=== PATIENT | female | born 1940 | race Caucasian/White ===

== ENCOUNTER 2019-08-17 09:46 | Observation (INO) | payer MEDICARE, SELFPAY ==
[2019-08-14 14:29] VITALS: BMI 32.5
[2019-08-17] VITALS (16 sets, daily range): BP systolic 120–171; BP diastolic 48–82; PULSE 6–78; RESP 16–20; TEMP 36.2–36.8; O2SAT 92–100
[2019-08-17] MEDS: sodium chloride 0.9% 1,000 ML 30 ML IV (06:34)
--- NOTE | 2019-08-17 06:53 | ANES.PREANE2 ---
Pre-Anesthetic Assessment Pre-Anesthetic Assessment: Height/Weight: Height 1.71 m Weight 95.708 kg Temp Pulse Resp BP Pulse Ox 97.2 F L 74 18 171/77 96 08/17/19 06:41 08/17/19 06:41 08/17/19 06:41 08/17/19 06:41 08/17/19 06:41 Preop Diagnosis: Lumbar spinal stenosis Proposed Procedure: Operation Date: 08/17/19 07:10 Proposed Procedures p Left, possible bilateral, L4-5 laminotomy/foraminotomy/possible discectomy/possible laminectomy M48.061/33959(Left) - Trent Etienne MD Was Beta Aaron taken within 24 hours: N/A Last intake: Intake Last Liquid Date 08/16/19 Last Liquid Time 22:00 Last Solid Date 08/16/19 Last Solid Time 15:00 Social: Social History: No alcohol and No tobacco Airway: Submandibular: WNL Cervical ROM: WNL MP: 3 Dentition: False (top and bottom plates ) History/ROS: No significant history except as noted and No significant complaints Pulmonary: Pulmonary: None reported CV/HEM: CV/HEM: HTN Comments: stress test neg 2014. denies CP/SOB : : None reported Hepatic: Hepatic: None reported GI: GI: None reported Metabolic: Metabolic: None reported Musc/skel: Musc/skel: None reported Neuropsych: Neuropsych: None reported Anesthetic Plan: ASA status: 3 Anesthesia: General Meds/Allergies Current Medications: Current Medications Generic Name Dose Route Start Last Admin Trade Name Freq PRN Reason Stop Dose Admin Sodium Chloride 1,000 mls @ 30 ml s/hr 08/17/19 06:15 08/17/19 06:34 Sodium Chloride 0.9% IV 08/18/19 06:14 30 mls/hr .Q24H DAMON Administration PFSH Anesthesia PFSH: Medical History (Updated 07/08/19 @ 15:15 by Trent Etienne MD) Displacement of lumbar disc with radiculopathy Stenosis, spinal, lumbar Surgical History (Updated 07/08/19 @ 15:15 by Trent Etienne MD) History of lumbar fusion Social History (Updated 07/08/19 @ 15:14 by Jessie Colón LPN) Smoking and tobacco status: former smoker Alcohol intake: never Lives independently: Yes Marital status: / Current occupational status: retired History of recent travel: No Data Anesthesia Cardiac Studies: No Data to Display
--- NOTE | 2019-08-17 06:58 | W.PM.OPSUD ---
Surgery/Procedure H&P Update DATE OF PROCEDURE: August 17, 2019 DATE H&P PERFORMED: 08/12/19 H&P UPDATE INFORMATION: I have reviewed H&P completed within last 30 days and H&P to be scanned into chart PREOP DIAGNOSIS: Lumbar spinal stenosis PRIMARY INDICATION FOR PROCEDURE: pain PLANNED PROCEDURE: Operation Date: 08/17/19 07:10 Proposed Procedures Left, possible bilateral, L4-5 laminotomy/foraminotomy/possible discectomy/possible laminectomy M48.061/31551(Left) - Trent Etienne MD
--- NOTE | 2019-08-17 07:06 | XR_ITS ---
WS: [id number] INTRAOPERATIVE LATERAL LUMBAR SPINE HISTORY: surgery COMPARISON: 01/19/2019 Lateral radiograph obtained in the OR with a metallic marker indicating the posterior L4-5 disc level . XR/XR lumbar spine 1V port [id number] IMPRESSION: Intraoperative planning marker at L4-5, posterior.
--- NOTE | 2019-08-17 07:08 | P.OP_ITS ---
Brief Operative Note: Date of procedure: 08/17/19 Pre-op diagnosis: Lumbar spinal stenosis Post-op diagnosis: same Procedure Done: Left L4-L5 laminotomy/foraminotomy Surgeon: Trent Etienne Estimated blood loss (mL): 20 Complications: None Post-op Plan: PACU, then fairchild Condition: stable Disposition: PACU Coding Level of Care Code Acute Rice Milling Supervisor for Kuldeep Baez
[2019-08-17] MEDS: thrombin 5,000 unit SDV 5000 UNIT XX (07:49)
--- NOTE | 2019-08-17 07:51 | XR_ITS ---
WS: [id number] INTRAOPERATIVE LATERAL LUMBAR SPINE HISTORY: SURGERY COMPARISON: 01/19/2019 Lateral radiograph obtained in the OR with a metallic marker indicating the posterior superior L5. So ft tissue spacers are present. Moderate vascular calcifications within the aorta. XR/XR lumbar spine 1V port [id number] IMPRESSION: Intraoperative planning marker at posterior superior L5 level.
--- NOTE | 2019-08-17 08:25 | SUR.OPER ---
Family Notified Of Patient's Status Via Phone.
--- NOTE | 2019-08-17 09:13 | SUR.PHASEI ---
PT AWAKES TO VOICE SLEEPY WITH GOOD RESP NOTED PT ON RA TRIAL, VSS
--- NOTE | 2019-08-17 09:24 | SUR.PHASEI ---
PT SATS ON RA DOWN TO 90% PT PLACED ON 3LNC SATS QUICKLY UP TO 94% PT AWAKES TO VOICE MOVES ALL EXT TO COMMAND, PT ROLLS TO SIDE DRSSING TO BACK D/I PT TAKING ICE CHIPS
--- NOTE | 2019-08-17 09:35 | SUR.PHASEI ---
0934 PT AWAKE ALERT REPORT CALLED PT OUT OF PHASE ON WAITING FOR ADM TO CHANGE IN COMPUTER.
[2019-08-17] MEDS: amlodipine 5 mg Tablet PO (10:55)
[2019-08-17] MEDS: docusate sodium 100 mg Capsule PO (10:55)
[2019-08-17] MEDS: isosorbide mononitrate ER 30 mg Tablet PO (10:55)
[2019-08-17] MEDS: gabapentin 300 mg Capsule PO (10:55)
[2019-08-17] MEDS: lactated ringers 1,000 ML 90 ML IV (10:56)
[2019-08-17] MEDS: HYDROcodone-acetaminophen 5-325 mg Tablet PO (11:37)
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
== END 2019-08-17 15:12 | disposition home or self-care (01) ==
LOC: MEDSURG 09:52
PROVIDERS: Admitting Provider Specialist; Family Provider Family Medicine; PCP Family Medicine; Visit Provider Specialist
PROC: (CPT 63030; principal; 2019-08-17 07:00)
DX: M48.061 Spinal stenosis, lumbar region without neurogenic claudication (principal); Z98.1 Arthrodesis status
CPT/HCPCS: 63030; 12345; 72020; 97110; 97161; G0378; J0131; J0690; J2001; J2405; J2704; J2710; J3010; J3490; J7030

== ENCOUNTER 2019-10-21 06:00 | Outpatient (RCR) | payer MEDICARE, SELFPAY | END 2019-11-06 23:59 | disposition home or self-care (01) | LOC: SPT 06:00 | PROVIDERS: PCP Family Medicine; Referring Provider Specialist; Visit Provider Specialist | DX: M51.16 Intervertebral disc disorders with radiculopathy, lumbar region (principal); M48.061 Spinal stenosis, lumbar region without neurogenic claudication | CPT/HCPCS: 97161 ==

== ENCOUNTER 2019-11-07 06:00 | Outpatient (RCR) | payer MEDICARE, SELFPAY | END 2019-12-07 23:59 | disposition home or self-care (01) | LOC: SPT 06:00 | PROVIDERS: PCP Family Medicine; Referring Provider Specialist; Visit Provider Specialist | DX: M51.16 Intervertebral disc disorders with radiculopathy, lumbar region (principal) | CPT/HCPCS: 97113 ==

== ENCOUNTER 2019-12-01 13:37 | Outpatient (CLI) | payer MEDICARE, SELFPAY ==
--- NOTE | 2019-12-01 14:15 | USCV_ITS ---
Kylie Kumar Age: 79 Gender: F : 1940 Exam Date: 12/01/2019 14:20 Ordering Phys: Tameka Shaikh Technologist: Betina Raymundo [place] [facility] [place]ication: lower extremity edema BP: / HR: 80 Rhythm: Sinus Technical Quality: Adequate MEASUREMENTS (Male / Female) Normal Values 2D ECHO LV Diastolic Diameter PLAX 4.4 cm 4.2 - 5.9 / 3.9 - 5.3 cm LV Systolic Diameter PLAX 2.0 cm IVS Diastolic Thickness 1.3 cm 0.6 - 1.0 / 0.6 - 0.9 cm IVS Systolic Thickness 1.9 cm LVPW Diastolic Thickness 0.7 cm 0.6 - 1.0 / 0.6 - 0.9 cm LVPW Systolic Thickness 1.6 cm LVOT Diameter 2.1 cm LV Ejection Fraction 2D Teich 84.7 % LV Ejection Fraction MOD 2C 82.5 % LV Ejection Fraction 2C AL 82.5 % LA Diameter 3.3 cm LA Width 1.9 cm LA Height 6.0 cm RA Width 2.8 cm RA Height 4.4 cm M-MODE LV Diastolic Diameter MM 4.4 cm 4.2 - 5.9 / 3.9 - 5.3 cm LV Systolic Diameter MM 2.6 cm LV Ejection Fraction MM Teich 72.9 % IVS Diastolic Thickness MM 1.3 cm 0.6 - 1.0 / 0.6 - 0.9 cm IVS Systolic Thickness MM 1.4 cm LVPW Diastolic Thickness MM 1.0 cm 0.6 - 1.0 / 0.6 - 0.9 cm LVPW Systolic Thickness MM 1.6 cm Aortic Annulus Diameter 2.8 cm LA Ao Ratio MM 1.2 MV E Point Septal Separation 0.3 cm DOPPLER AV Peak Velocity 329.0 cm/s LVOT Peak Velocity 144.0 cm/s AV Area Cont Eq vti 1.8 cm squared AV Area Cont Eq pk 1.5 cm squared MV Peak Velocity 153.0 cm/s MV Area PHT 2.8 cm squared Mitral E to A Ratio 0.9 MV E' Velocity 7.0 cm/s Mitral E to MV E' Ratio 9.7 Mitral E to LV E' Lateral Ratio 13.7 Mitral E to LV E' Septal Ratio 7.6 TR Peak Velocity 345.0 cm/s TR Peak Gradient 47.7 mmHg Right Atrial Pressure 3.0 mmHg Pulmonary Artery Systolic Pressu 50.6 mmHg PV Peak Velocity 144.0 cm/s RV Acceleration Time 0.1 s FINDINGS Left Ventricle Normal left ventricular size, systolic function and wall thickness, with no regional wall motion abnormalities. LVEF is 55 to 60%. Normal left ventricular wall thickness. Diastolic dysfunction is noted. Right Ventricle The right ventricle is normal in size and function. Right Atrium The right atrium is normal in size. Left Atrium The left atrium is normal in size. Mitral Valve Structurally normal mitral valve without significant stenosis or prolapse. There is trace mitral regurgitation. Aortic Valve Aortic sclerosis is noted. There is no aortic regurgitation. There is moderate aortic stenosis. Mean aortic valve gradient is 20 mmHg with an area of 1.7 cm squared. Tricuspid Valve Structurally normal tricuspid valve without significant stenosis. There is mild tricuspid regurgitation. RVSP is 50 to 55%. At least moderate pulmonary hypertension is noted. Pulmonic Valve Structurally normal pulmonic valve without significant stenosis. There is no pulmonic regurgitation. Pericardium Normal pericardium without effusion. Aorta Normal ascending aorta dimension. CONCLUSIONS LV systolic function is normal with EF of 55 to 60%. Diastolic dysfunction is noted. Moderate aortic stenosis with mean aortic valve gradient of 20 mmHg with an area of 1.7 cm squared. Moderate pulmonary hypertension. Reese Carter MD (Electronically Signed) Final Date: 01 December 2019 18:34 S
== END 2019-12-01 13:38 | disposition home or self-care (01) ==
PROVIDERS: PCP Family Medicine; Visit Provider Nurse Practitioner Family
DX: R60.0 Localized edema (principal); I51.81 Takotsubo syndrome; I35.0 Nonrheumatic aortic (valve) stenosis; I27.20 Pulmonary hypertension, unspecified
CPT/HCPCS: 93306

== ENCOUNTER 2019-12-08 06:00 | Outpatient (RCR) | payer MEDICARE, SELFPAY | END 2020-01-06 23:59 | disposition home or self-care (01) | LOC: SPT 06:00 | PROVIDERS: PCP Family Medicine; Referring Provider Specialist; Visit Provider Specialist | DX: M51.16 Intervertebral disc disorders with radiculopathy, lumbar region (principal) | CPT/HCPCS: 97113; 97530 ==

== ENCOUNTER 2020-02-01 13:40 | Outpatient (CLI) | payer MEDICARE, SELFPAY ==
--- NOTE | 2020-02-01 13:47 | MM_ITS ---
WS: [id number] BILATERAL SCREENING DIGITAL MAMMOGRAM WITH CAD HISTORY: SCREENING COMPARISON: None available. Bilateral CC and MLO views submitted. Computer aided detection analyzed. Breast composition: There are scattered areas of fibroglandular density. No suspicious masses, microc alcifications or architectural distortion. Benign calcifications in each breast. MM/[place] [id number] IMPRESSION: BI-RADS: 2-Benign FOLLOW UP: 1 Year Follow-up
== END 2020-02-01 13:41 | disposition home or self-care (01) ==
LOC: RADSHAW 13:45
PROVIDERS: PCP Family Medicine; Visit Provider Family Medicine
DX: Z12.31 Encounter for screening mammogram for malignant neoplasm of breast (principal)
CPT/HCPCS: 77067

== ENCOUNTER 2020-07-26 11:16 | Emergency (ER) | payer MEDICARE, SELFPAY ==
[2020-07-26 11:28] VITALS: BP 145/75; PULSE 74; RESP 17; TEMP 36.6; O2SAT 98; BMI 34.1
--- NOTE | 2020-07-26 11:38 | USCV_ITS ---
Kylie Kumar Age: 80 Gender: F : 1940 Exam Date: 07/26/2020 12:54 Ordering Phys: Jay Mancilla DO Technologist: Maggie Chaidez Exam Location: [facility]_ Indication: H/O RLE STENT 2004, RLE PAIN Risk Factors: Previous Vascular Surgery: RLE STENTS 2003 RIGHT LEFT BP: 150.0 / BP: 134.0/ 0 0 Waveform Velocity (cm/s) Velocity (cm/s) Waveform Triphasic 119.1 Iliac Prox Triphasic 129.6 Iliac Mid Triphasic 129.3 Iliac Distal Triphasic 107.7 [facility] Triphasic 101.7 SFA Prox Biphasic 88.9 SFA Mid Biphasic 132.8 SFA Dist Biphasic 46.1 POP Biphasic 76.0 QUALITY CHECKER Biphasic 55.0 DPA 0.8 LESLEY FINDINGS RT QUALITY CHECKER-125 RT DPA-120 To moderate diffuse dense plaques in the iliac and femoral arteries on the right side Slightly diminished resting LESLEY of 0.8 on the right side CONCLUSIONS Abnormal resting LESLEY on the right side, consistent with a mild peripheral artery disease. Mild to moderate diffuse plaques in the iliac and femoral arteries on the right side No prior study for comparison. Dr Jt Araujo MD [facility] (Electronically Signed) Final Date: 27 July 2020 19:35 S
--- NOTE | 2020-07-26 11:40 | ECG_ITS ---
[facility] Test Date: 2020-07-26 Pat Name: Kylie Kumar Department: Room: Gender: Female Elevator Repairer: : 1940 Requested By: Jay Mancilla Order Number: [id number] Reading MD: LETICIA ROBLES Measurements Intervals [place] Rate: 75 P: 51 UT: 155 QRS: 19 QRSD: 95 T: 68 QT: 398 QTc: 446 Interpretive Statements SINUS RHYTHM No previous ECG available for comparison Electronically Signed On 07-26-2020 23:40:27 CDT by LETICIA ROBLES [email or web address]
--- NOTE | 2020-07-26 11:41 | ED_ITS ---
HPI - General Adult General: Chief complaint: General Medical Stated complaint: GROIN PAIN/HAS STENT Time Seen by Provider: 07/26/20 11:33 History of Present Illness: HPI narrative: 80-year-old female presents with right groin pain. Patient reports that she has a couple stents in her right groin that over the last 4 days she has had pain in that area. She is concerned that there might be a blockage. She denies any increase activity, injury or radiation of the pain patient also states that she has palpitations which she describes as normal she can feel her heartbeat. Patient not having chest pain per se no shortness of breath or other systemic complaints. Associated symptoms: Deny chest pain, dyspnea, headache(s), nausea, rash or vomiting Review of Systems Const: Denies: fever(s) or chills Eyes: Denies: change in vision ENMT: Denies: throat pain Card: Reports: palpitations (please see hpi ); Denies: chest pain Resp: Denies: dyspnea or productive cough GI: Denies: abdominal pain, nausea or vomiting : Denies: flank pain Musc: Reports: other (Right groin pain) Skin/Breast: Denies: rash Neuro: Denies: headache(s) Psych: Denies: anxiety or depression PFSH ED PFSH: Medical History Aortic stenosis Displacement of lumbar disc with radiculopathy Hyperlipidemia LDL goal <130 Hypertension Stenosis, spinal, lumbar Surgical History History of lumbar fusion Social History Smoking and tobacco status: former smoker Alcohol intake: never Lives independently: Yes Marital status: / Current occupational status: retired History of recent travel: No Physical Exam Const: COMMON NORMALS: no acute distress, patient oriented x3, no limitations and healthy appearing Lymph: LYMPHATIC: no lymphadenopathy noted Resp: COMMON NORMALS: normal respiratory effort and clear to auscultation bilaterally EFFORT & INSPECTION: Yes able to speak in complete sentences AUSCULTATION: clear to auscultation bilaterally Cardio: COMMON NORMALS: regular rate, regular rhythm and Peripheral pulses 2+ throughout RATE: regular rate RHYTHM: regular rhythm PERIPHERAL PULSES: Peripheral pulses 2+ throughout Extremity: COMMON NORMALS: normal to inspection and full ROM NARRATIVE EXTREMITY EXAM: Tenderness to the right groin Neuro: COMMON NORMALS: patient oriented x3 and no focal motor deficits Psych: COMMON NORMALS: mental status grossly normal Skin: COMMON NORMALS: no rashes or lesions noted GENERAL SKIN EXAM: no rashes or lesions noted Course Vital Signs: Vital signs: Vital Signs Temperature 97.8 F 07/26/20 11:28 Pulse Rate 78 07/26/20 11:44 Respiratory Rate 18 07/26/20 11:44 Blood Pressure 154/47 07/26/20 11:44 Pulse Oximetry 98 07/26/20 11:44 MDM - General Adult MDM Narrative: Medical decision making narrative: Patient with negative ultrasound with good flow in all vessels in the right groin. Patient's pain is in the groin and not up into the abdomen. Much more consistent with groin strain. We will start her on anti-inflammatory and muscle relaxant. She should follow with her primary care provider at the end of this week or early next week for recheck of symptoms. EKG Data^: EKG 1: Attestation: I personally reviewed and interpreted this EKG as follows: EKG interpretation date: 07/26/20 EKG interpretation time: 11:27 Interpretation: Normal Sinus, Hr 75, pr 155, normal ecg Discharge Plan Discharge Prescriptions: No Action montelukast [Singulair] 10 mg tablet 10 mg PO DAILY@23 RF: 0 Complete Multivitamin Tablet 1 tab PO DAILY RF: 0 fenofibrate 160 mg tablet 160 mg PO DAILY@10 RF: 0 trazodone 50 mg tablet 50 - 150 mg PO BEDTIME RF: 0 gabapentin 300 mg capsule 600 mg PO BID@,23 RF: 0 budesonide-formoterol [Symbicort] 160-4.5 mcg/actuation HFA aerosol inhaler 2 puff INHALATION BID RF: 0 amlodipine 10 mg tablet 10 mg PO DAILY Qty: 90 RF: 3 simvastatin 20 mg tablet 20 mg PO DAILY@2300 RF: 0 hydrocodone-acetaminophen [[place]] 7.5-325 mg tablet 1 tab PO TID PRN (Reason: pain) Qty: 15 RF: 0 losartan 50 mg tablet 50 mg PO DAILY@10 RF: 0 isosorbide mononitrate 30 mg tablet extended release 24 hr 30 mg PO DAILY@23 RF: 0 furosemide 20 mg tablet 20 mg PO DAILY@10 RF: 0 Coding Level of Care Code ED Mechanical Oxidizer for Kuldeep Fwd Exam Comprehensive
[2020-07-26 11:44] VITALS: BP 154/47; PULSE 78; RESP 18; O2SAT 98
[2020-07-26 13:41] VITALS: BP 154/47; PULSE 78; RESP 18; O2SAT 98
== END 2020-07-26 13:42 | disposition home or self-care (01) ==
PROVIDERS: Emergency Provider Student in an Organized Health Care Education/Training Program; PCP Family Medicine
DX: R10.31 Right lower quadrant pain (principal); E78.5 Hyperlipidemia, unspecified; I10 Essential (primary) hypertension; Z87.891 Personal history of nicotine dependence
CPT/HCPCS: 93005; 93926; 99283

== ENCOUNTER 2020-09-01 14:23 | Outpatient (CLI) | payer MEDICARE, SELFPAY ==
--- NOTE | 2020-09-01 15:00 | USCV_ITS ---
Kylie Kumar Age: 80 Gender: F : 1940 Exam Date: 09/01/2020 14:46 Ordering Phys: Tameka Shaikh Technologist: [place] [facility] [place]: AORTIC STENOSIS BP: 130 / 80 HR: 76 Rhythm: Sinus Technical Quality: Adequate MEASUREMENTS (Male / Female) Normal Values 2D ECHO LVOT Diameter 2.0 cm LV Ejection Fraction MOD 2C 69.6 % LV Ejection Fraction 2C AL 69.5 % LA Diameter 3.4 cm LA Width 4.3 cm LA Height 5.3 cm RA Width 3.8 cm RA Height 4.6 cm M-MODE RV Diastolic Diameter MM 1.1 cm Aortic Annulus Diameter 0.8 cm MV E Point Septal Separation 0.8 cm DOPPLER AV Peak Velocity 392.0 cm/s LVOT Peak Velocity 97.0 cm/s AV Area Cont Eq vti 0.8 cm squared AV Area Cont Eq pk 0.8 cm squared MV Area PHT 5.0 cm squared Mitral E to A Ratio 0.9 MV E' Velocity 59.5 cm/s Mitral E to MV E' Ratio 9.7 Mitral E to LV E' Lateral Ratio 10.7 Mitral E to LV E' Septal Ratio 8.9 TR Peak Velocity 193.3 cm/s TR Peak Gradient 15.0 mmHg TV Peak E Velocity 71.0 cm/s Right Atrial Pressure 3.0 mmHg Pulmonary Artery Systolic Pressu 18.0 mmHg PV Peak Velocity 141.0 cm/s FINDINGS Left Ventricle Normal left ventricular size and systolic function with no regional wall motion abnormalities. Left ventricular ejection fraction is estimated at 75 %. Normal diastolic function. Right Ventricle Normal right ventricular size and systolic function. Right ventricular systolic pressure 18 mmHg. Right Atrium Right atrium not well visualized. Left Atrium Normal left atrial size. Mitral Valve Moderate mitral annular calcification. Thickened mitral valve. No mitral valve stenosis. Trace mitral valve regurgitation. Aortic Valve Moderately thickened and calcified aortic valve. Moderate aortic valve stenosis, peak velocity of 3.3 m/sec, peak gradient 46 mm Hg, mean gradient 19 mmHg, [place] 0.9 cm squared. No aortic valve regurgitation. Tricuspid Valve Tricuspid valve not well visualized. Trace tricuspid valve regurgitation. Pulmonic Valve Pulmonic valve not well visualized. No pulmonary valve stenosis. Pericardium Trivial pericardial effusion. Aorta Normal sized aortic root. CONCLUSIONS 1. Normal left ventricular size and systolic function with no regional wall motion abnormalities. Left ventricular ejection fraction is estimated at 75 %. Normal diastolic function. 2. Normal right ventricular size and systolic function. 3. Moderate aortic valve stenosis, peak velocity of 3.3 m/sec, peak gradient 46 mm Hg, mean gradient 19 mmHg, [place] 0.9 cm squared. Dimensionless valve index of 0.34. 4. Trivial pericardial effusion. 5. When compared to previous echocardiogram dated 12/01/2019, there may not have been any significant change. Cindy Che MD (Electronically Signed) Final Date: 04 Sep 2020 16:29 S
== END 2020-09-01 14:24 | disposition home or self-care (01) ==
LOC: RAD 14:27
PROVIDERS: PCP Family Medicine; Visit Provider Nurse Practitioner Family
DX: I35.0 Nonrheumatic aortic (valve) stenosis (principal); I31.3 Pericardial effusion (noninflammatory)
CPT/HCPCS: 93306

== ENCOUNTER → 2021-10-26 14:30 | Outpatient (BNVA) | payer MEDICARE, SELFPAY | PROVIDERS: PCP Family Medicine; Visit Provider Internal Medicine Cardiovascular Disease | DX: I11.0 Hypertensive heart disease with heart failure (principal); I50.32 Chronic diastolic (congestive) heart failure; I35.0 Nonrheumatic aortic (valve) stenosis; E78.5 Hyperlipidemia, unspecified | CPT/HCPCS: 99214 ==

== ENCOUNTER 2021-10-27 10:59 | Outpatient (CLI) | payer MEDICARE, SELFPAY ==
[2021-10-27 12:04] LABS: Alanine Aminotransferase 22 U/L (0-33); Albumin Level 4.1 g/dL (3.5-5.2); Alkaline Phosphatase 28 IU/L (35-105); Aspartate Amino Transferase 36 U/L (0-32); Blood Urea Nitrogen 17 mg/dL (8-23); Carbon Dioxide 19 mmol/L (22-29); Chloride 104 mmol/L (98-107); Chol HDL Ratio 2.93 mg/dL (0.0-4.40); Cholesterol 117 mg/dL (0-200); Globulin 3.1 g/dL (1.3-4.6); Glucose 97 mg/dL (65-115); HDL Cholesterol 40 mg/dL (60-100); LDL Cholesterol Calculated 49 mg/dL (50-129); LDL HDL Ratio 1.23 RATIO (0.00-3.22); Osmolality Calculated 285 mOsm/kg (285-295); Sodium 137 mmol/L (136-145); Total Bilirubin 0.3 mg/dL (0.15-1.2); Total Protein 7.2 g/dL (6.6-8.7); Triglycerides 140 mg/dL (0-150)
[2021-10-27 12:05] LABS: Anion Gap 18.7 (5-19); Potassium 4.7 mmol/L (3.5-5.1)
[2021-10-27 12:32] LABS: NT Pro B Type Natriuretic Pept 202 pg/mL (0-450)
== END 2021-10-27 11:00 | disposition home or self-care (01) ==
PROVIDERS: PCP Family Medicine; Visit Provider Internal Medicine Cardiovascular Disease
DX: E78.5 Hyperlipidemia, unspecified (principal); I35.0 Nonrheumatic aortic (valve) stenosis; I50.33 Acute on chronic diastolic (congestive) heart failure; R06.02 Shortness of breath
CPT/HCPCS: 80048; 80061; 80076; 83880

== ENCOUNTER 2022-02-07 09:21 | Outpatient (CLI) | payer MEDICARE, SELFPAY ==
--- NOTE | 2022-02-07 10:00 | USCV_ITS ---
José Kylie Age: 81 Gender: F : 1940 Exam Date: 02/07/2022 09:52 Ordering Phys: Jt Araujo MD ([email or web address]) Technologist: Davon Davis Exam [place] [facility] [place]ication: AO Valve stenosis BP: 130 / 82 HR: 63 Rhythm: Sinus Technical Quality: Adequate MEASUREMENTS (Male / Female) Normal Values 2D ECHO LV Diastolic Diameter PLAX 3.6 cm 4.2 - 5.9 / 3.9 - 5.3 cm LV Systolic Diameter PLAX 1.9 cm IVS Diastolic Thickness 0.9 cm 0.6 - 1.0 / 0.6 - 0.9 cm IVS Systolic Thickness 1.2 cm LVPW Diastolic Thickness 1.2 cm 0.6 - 1.0 / 0.6 - 0.9 cm LVPW Systolic Thickness 1.9 cm LVOT Diameter 2.0 cm LV Ejection Fraction 2D Teich 79.6 % LV Ejection Fraction MOD 2C 80.8 % LV Ejection Fraction 2C AL 82.0 % LA Diameter 3.7 cm LA Width 3.4 cm LA Height 4.9 cm RA Width 4.2 cm RA Height 4.4 cm Aorta at Sinotubular Diameter 2.2 cm IVC Diameter 1.8 cm M-MODE Aortic Annulus Diameter 2.7 cm LA Ao Ratio MM 1.4 MV E Point Septal Separation 0.3 cm DOPPLER AV Peak Velocity 348.0 cm/s LVOT Peak Velocity 96.0 cm/s AV Area Cont Eq vti 0.7 cm squared AV Area Cont Eq pk 0.9 cm squared MV Peak Velocity 124.0 cm/s MV Area PHT 3.1 cm squared Mitral E to A Ratio 0.8 MV E' Velocity 48.5 cm/s Mitral E to MV E' Ratio 8.4 Mitral E to LV E' Lateral Ratio 10.9 Mitral E to LV E' Septal Ratio 6.9 TR Peak Velocity 314.7 cm/s TR Peak Gradient 39.6 mmHg TR Mean Velocity 249.1 cm/s TR Mean Gradient 26.1 mmHg TR Velocity Time Integral 100.0 cm Right Atrial Pressure 3.0 mmHg Pulmonary Artery Systolic Pressu 42.6 mmHg PV Peak Velocity 159.0 cm/s RV Acceleration Time 0.1 s RV Ejection Time 0.3 s RV AcT/ET 0.2 FINDINGS Left Ventricle Normal left ventricular size and systolic function, EF 78 %. Mild left ventricular hypertrophy. No regional wall motion abnormalities. Grade I/IV diastolic dysfunction (abnormal relaxation filling pattern), normal to mildly elevated filling pressures. Right Ventricle The right ventricle is normal in size and function. Right Atrium Mildly increased right atrial size. Left Atrium Mildly increased left atrial size. Mitral Valve Thickened mitral valve. Trace mitral valve regurgitation. Aortic Valve Low gradient severe aortic valve stenosis with a valve area of 0.7 cm squared. Peak velocity of 3.48 m/s with a peak gradient of 47 and a mean gradient of 27 mmHg. The aortic valve index was 0.33 Tricuspid Valve Moderate tricuspid valve regurgitation. Estimated pulmonary artery peak systolic pressure 47 mmHg Pulmonic Valve Pulmonic valve not well visualized. Pericardium Normal pericardium without effusion. Aorta Normal ascending aorta dimension. IVC The inferior vena cava appears normal. CONCLUSIONS Normal left ventricular size and systolic function, EF 78 %. Mild left ventricular hypertrophy. No regional wall motion abnormalities. Grade I/IV diastolic dysfunction (abnormal relaxation filling pattern), normal to mildly elevated filling pressures. Low gradient severe aortic valve stenosis with a valve area of 0.7 cm squared. (Peak velocity of 3.48 m/s with a peak gradient of 47 and a mean gradient of 27 mmHg. The aortic valve index was 0.33. ) Mild biatrial enlargement Thickened mitral valve. Trace mitral valve regurgitation. Moderate tricuspid valve regurgitation. Estimated pulmonary artery peak systolic pressure 47 mmHg There is no pericardial effusion. There are no intracardiac masses. Compared to the study from 09/01/2020, there may not be significant change Dr Jt Araujo MD [facility] (Electronically Signed) Final Date: 08 February 2022 08:20 S
== END 2022-02-07 09:22 | disposition home or self-care (01) ==
LOC: RAD 09:21
PROVIDERS: PCP Family Medicine; Visit Provider Internal Medicine Cardiovascular Disease
DX: R06.00 Dyspnea, unspecified (principal); I08.3 Combined rheumatic disorders of mitral, aortic and tricuspid valves
CPT/HCPCS: 93306

== ENCOUNTER → 2022-03-14 10:15 | Outpatient (BNVA) | payer MEDICARE, SELFPAY | PROVIDERS: PCP Family Medicine; Visit Provider Nurse Practitioner Family | DX: I11.0 Hypertensive heart disease with heart failure (principal); I50.30 Unspecified diastolic (congestive) heart failure; I35.0 Nonrheumatic aortic (valve) stenosis; Z87.891 Personal history of nicotine dependence | CPT/HCPCS: 99214 ==

== ENCOUNTER 2022-10-11 15:15 | Observation (INO) | payer MEDICARE, SELFPAY ==
[2022-10-11] VITALS (10 sets, daily range): BP systolic 108–184; BP diastolic 55–80; PULSE 56–69; RESP 15–18; TEMP 36.5–36.7; O2SAT 92–95; BMI 31.3
--- NOTE | 2022-10-11 | USCV_ITS ---
Kylie Kumar Age: 82 Gender: F : 1940 Exam Date: 10/11/2022 21:22 Ordering Phys: Gurvinder Styles MD Technologist: NISHA Exam Location: [facility] – [place] Indication: RIGHT hemiparesis CVA. Quit smoking 2001. No DM. No history of cardiac intervention per patient. BUBBLE STUDY ORDERED BP: 162 / 65 HR: 60 Rhythm: Sinus Technical Quality: Adequate MEASUREMENTS (Male / Female) Normal Values 2D ECHO LV Diastolic Diameter PLAX 4.3 cm 4.2 - 5.9 / 3.9 - 5.3 cm LV Systolic Diameter PLAX 2.6 cm IVS Diastolic Thickness 1.6 cm 0.6 - 1.0 / 0.6 - 0.9 cm IVS Systolic Thickness 2.3 cm LVPW Diastolic Thickness 1.3 cm 0.6 - 1.0 / 0.6 - 0.9 cm LVPW Systolic Thickness 2.0 cm LVOT Diameter 2.0 cm LV Ejection Fraction 2D Teich 69.1 % LV Ejection Fraction MOD 2C 62.8 % LV Ejection Fraction 2C AL 62.3 % LA Diameter 3.7 cm LA Width 3.4 cm LA Height 5.9 cm RA Width 3.0 cm RA Height 4.9 cm Aorta at Sinotubular Diameter 2.5 cm IVC Diameter 1.9 cm M-MODE Aortic Annulus Diameter 3.1 cm LA Ao Ratio MM 1.2 MV E Point Septal Separation 0.3 cm DOPPLER AV Peak Velocity 371.7 cm/s LVOT Peak Velocity 132.0 cm/s AV Area Cont Eq vti 1.2 cm squared AV Area Cont Eq pk 1.1 cm squared MV Area PHT 2.1 cm squared Mitral E to A Ratio 0.7 MV E' Velocity 47.5 cm/s Mitral E to MV E' Ratio 12.7 Mitral E to LV E' Lateral Ratio 12.4 Mitral E to LV E' Septal Ratio 13.3 TR Peak Velocity 284.3 cm/s TR Peak Gradient 32.3 mmHg TV Peak E Velocity 34.0 cm/s Right Atrial Pressure 5.0 mmHg Pulmonary Artery Systolic Pressu 37.3 mmHg PV Peak Velocity 160.0 cm/s RV Acceleration Time 0.1 s RV Ejection Time 0.4 s RV AcT/ET 0.3 FINDINGS Left Ventricle Left ventricle is normal in size. LV systolic function is normal with EF of 55 to 60%. No regional wall motion abnormalities are seen. Grade 1 diastolic dysfunction Right Ventricle Normal in size and function Right Atrium Normal in size. Bubble study shows no right to left shunt. Left Atrium Normal in size Mitral Valve Structurally normal mitral valve. Mild mitral regurgitation. Aortic Valve Aortic valve is thickened. Moderate aortic stenosis with aortic valve area of 1.3 cm squared and mean gradient across aortic valve of 22.7 mmHg. Tricuspid Valve Mild tricuspid regurgitation. RVSP is 35 to 40 mmHg. Mild pulmonary hypertension. Pulmonic Valve Not well visualized Pericardium Normal Aorta Normal in size IVC Appears to be normal CONCLUSIONS LV systolic function is normal with EF of 55 to 60% Grade 1 diastolic dysfunction Bubble study shows no intracardiac shunt. Mild mitral regurgitation Moderate aortic stenosis Mild tricuspid regurgitation Mild pulmonary hypertension Compared to prior echocardiogram from 2021, no significant changes are noted Reese Carter MD (Electronically Signed) Final Date: 12 October 2022 13:00 S
--- NOTE | 2022-10-11 06:00 | USCV_ITS ---
Kylie Kuamr Age: 82 Gender: F : 1940 Exam Date: 10/11/2022 20:54 Ordering Phys: Gurvinder Styles MD Technologist: NISHA Exam Location: [facility] – [place] Indication: RIGHT hemiparesis CVA. Quit smoking 2001. No DM. No prior TIA or CVA. Risk Factors: RIGHT hemiparesis CVA. Quit smoking 2001. No DM. No prior TIA or CVA. Previous Vascular Surgery: None Right Brachial BP: 162 / 65 Left Brachial BP: / Right Left Velocity (cm/s) Spectral Plaque Velocity (cm/s) Spectral Plaque Syst/Diast Broadening Syst/Diast Broadening 80.50/ 8.80 Min Homo Prox CCA 73.50 / 8.50 Min Homo 69.90/ 7.80 Min Homo Mid CCA 82.00 / 12.00 Min Homo 62.10/ 7.80 Min Hetro Distal CCA 70.10 / 12.00 Min Hetro 79.20/ 12.40 Min [place] Prox ICA 59.00 / 15.40 Mod Hetro 143.20/24.70 Mod Hetro Mid ICA 86.80 / 22.00 Mod Hetro 105.60/12.40 Mod Hetro Distal ICA 78.00 / 18.70 Mod Hetro 76.90 Min Homo ECA 71.80 Mod Hetro 1.78 ICA/CCA 1.06 Antegrade Vertebral Antegrade 62.10/ 12.40 cm/s 47.00/ 8.50 cm/s Tri Subclavian Tri 85.40 72.60 FINDINGS Comparison:. 04/17/18 No significant elevation of systolic or diastolic velocities. Waveforms are normal. Minimal bilateral, atherosclerosis with no elevation of velocity. Antegrade vertebral arteries. CONCLUSIONS Bilateral ICA stenosis less than 50%. Minimal carotid atherosclerosis. Dr. Jennifer Field DO (Electronically Signed) Final Date: 12 October 2022 07:08 S
--- NOTE | 2022-10-11 15:26 | CT_ITS ---
WS: [id number] CT HEAD TECHNIQUE: Noncontrast CT of the head obtained from the skullbase to the vertex. CLINICAL INFORMATION: right leg weakness COMPARISON: None. DLP: 1078.[address] scans at [facility] use at least one of these dose optimization techniques: automated e xposure control; mA and/or kV adjustment per patient size (includes targeted exams where dose is matc hed to clinical indication); or iterative reconstruction. FINDINGS: No evidence of intracranial hemorrhage or mass effect. Ventricular system and basal cisterns are calles nt. Moderate small vessel changes with moderate parenchymal volume loss. No extra-axial fluid collect ions. No evidence of mass or mass effect. Intracranial vascular calcification. Paranasal sinuses and mastoid air cells are well aerated. .Normal visualized soft tissues. CT/CT head wo con* [id number] IMPRESSION: 1. No evidence of intracranial hemorrhage or mass effect. 2. Moderate small vessel changes. Moderate parenchymal volume loss. 3. Intracranial vascular calcification. 4. No acute intracranial findings. Notified Kathrine Garcia MD at 10/11/2022 3:45 PM.
--- NOTE | 2022-10-11 15:28 | ECG_ITS ---
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 Measurements Intervals [place] Rate: 55 P: 60 [place]: 164 QRS: 38 QRSD: 91 T: 75 QT: 448 QTc: 430 Interpretive Statements SINUS BRADYCARDIA Compared to ECG 07/26/2020 11:27:02 Sinus rhythm no longer present Electronically Signed On 10-11-2022 18:22:01 CDT by Reese Carter M.D. [id number]
--- NOTE | 2022-10-11 15:29 | ED_ITS ---
HPI - Fall General: Chief Complaint: Fall Stated Complaint: rt leg weakness Time Seen by Provider: 10/11/22 15:16 Source: patient and EMS Mode of arrival: EMS Limitations: no limitations History of Present Illness: 82-year-old female states that she was out in her garden had sudden onset of right leg weakness. She states this started at 1 PM states that she had to sit down because she was unable to move her leg I did have her ambulate to the bed but she is very weak with her right leg and has a very hard time ambulating or lifting it. States she has had some numbness in her arm denies any weakness in her arm denies any slurred speech. Associated symptoms-after fall: Denies abdominal pain, chest pain, headache(s) or neck pain Review of Systems Const: Denies: fever(s), chills, body aches or change in appetite Eyes: Denies: blurry vision or eye discomfort ENMT: Denies: throat pain or dental pain Card: Denies: chest pain Resp: Denies: dyspnea GI: Denies: abdominal pain, nausea, vomiting or diarrhea : Denies: dysuria Musc: Denies: neck pain or back pain Skin/Breast: Denies: rash Neuro: Reports: weakness in extremities; Denies: headache(s) PFSH ED PFSH: Medical History Aortic stenosis Displacement of lumbar disc with radiculopathy Hyperlipidemia LDL goal <130 Hypertension Stenosis, spinal, lumbar Surgical History History of lumbar fusion Family History Mother Stroke Denies family history of Diabetes CAD (coronary artery disease) Clotting disorder Dementia Chronic kidney disease (CKD) Suicide Anesthesia complication Bleeding disorder Lung disease Cancer Social History Smoking and tobacco status: former smoker Alcohol intake: never Substance/Drug Use: never Lives independently: Yes Marital status: / Current occupational status: retired Physical Exam Const: COMMON NORMALS: no acute distress, patient oriented x3 and healthy appearing HENMT: COMMON NORMALS: normocephalic and atraumatic HEAD & SCALP: normocephalic and atraumatic Eye: COMMON NORMALS: EOMs intact bilaterally Neck/C-Spine: COMMON NORMALS: full ROM and supple Chest: COMMONS NORMALS: normal inspection of the chest and normal palpation of entire chest wall Resp: COMMON NORMALS: normal respiratory effort, No retractions, No use of accessory muscles and clear to auscultation bilaterally AUSCULTATION: clear to auscultation bilaterally Cardio: COMMON NORMALS: regular rate, regular rhythm and No murmurs present (Cardio) RATE: regular rate RHYTHM: regular rhythm GI: COMMON NORMALS: Normal to inspection, nondistended, normoactive bowel soun ds present, Soft to palpation, non-tender and no masses PALPATION: Yes Soft to palpation Extremity: COMMON NORMALS: full ROM Neuro: COMMON NORMALS: patient oriented x3 Psych: COMMON NORMALS: mental status grossly normal, Normal thought process present and cooperative THOUGHT PROCESS: Normal thought process present Skin: COMMON NORMALS: no rashes or lesions noted and no wounds GENERAL SKIN EXAM: no rashes or lesions noted Course Vital Signs: Vital signs: Vital Signs Temperature 98.1 F 10/11/22 15:16 Pulse Rate 60 10/11/22 17:09 Respiratory Rate 18 10/11/22 17:09 Blood Pressure 162/65 10/11/22 17:09 Pulse Oximetry 95 10/11/22 17:09 Oxygen Delivery Me thod Room Air 10/11/22 17:09 MDM - Fall Medical Decision Making Patient presents with right leg weakness with a possible stroke. Weakness has improved slightly neurologist did talk to patient neurologist offered tPA spoke to patient about tPA as well and patient refused she refused the administration of the tPA. She does have medical decision made capacity she does agree to admission we will give her aspirin spoke to hospitalist will admit. Lab Data 10/11/22 15:57 10/11/22 15:[address] 10/11/22 15:26 IMPRESSION: 1. No evidence of intracranial hemorrhage or mass effect. 2. Moderate small vessel changes. Moderate parenchymal volume loss. 3. Intracranial vascular calcification. 4. No acute intracranial findings. Notified Kathrine Garcia MD at 10/11/2022 3:45 PM. Laboratory Results WBC 5.0 10^3/uL (4.0-10.0) 10/11/22 15:57 RBC 4.48 10^6/uL (4.1-5.3) 10/11/22 15:57 Hgb 11.2 g/dL (11.5-15.3) L 10/11/22 15:57 Hct 36.8 % (37.0-47.0) L 10/11/22 15:57 MCV 82.1 fl (81-99) 10/11/22 15:57 MCH 25.0 pg (28.0-34.0) L 10/11/22 15:57 MCHC 30.4 g/dL (30.0-36.0) 10/11/22 15:57 RDW 16.2 % (12.1-15.1) H 10/11/22 15:57 Plt Count 143 10^3/cmm (130-400) 10/11/22 15:57 MPV 10.6 fL (7.4-10.4) H 10/11/22 15:57 Neut % (Auto) 54.3 % 10/11/22 15:57 Lymph % (Auto) 34.9 % 10/11/22 15:57 Whiteside % (Auto) 7.8 % 10/11/22 15:57 Eos % (Auto) 2.0 % 10/11/22 15:57 Baso % (Auto) 0.8 % 10/11/22 15:57 Neut # (Auto) 2.70 10^3/uL (1.8-7.7) 10/11/22 15:57 Lymph # (Auto) 1.7 10^3/uL (0.8-4.8) 10/11/22 15:57 Whiteside # (Auto) 0.4 10^3/uL (0.2-0.9) 10/11/22 15:57 Eos # (Auto) 0.1 10^3/uL (0.0-0.8) 10/11/22 15:57 Baso # (Auto) 0.0 10^3/uL (0.0-0.1) 10/11/22 15:57 Nucleated RBC % (auto) 0 % 10/11/22 15:57 Nucleated RBCs # 0.0 /100WBC 10/11/22 15:57 PT 14.10 SECONDS (12.1-14.9) 10/11/22 15:57 INR 1.05 (0.8-1.2) 10/11/22 15:57 Sodium 141 mmol/L (136-145) 10/11/22 15:57 Potassium 4.7 mmol/L (3.5-5.1) 10/11/22 15:57 Chloride 106 mmol/L (98-107) 10/11/22 15:57 Carbon Dioxide 24 mmol/L (22-29) 10/11/22 15:57 Anion Gap 15.7 (5-19) 10/11/22 15:57 BUN 15 mg/dL (8-23) 10/11/22 15:57 Creatinine 0.8 mg/dL (0.5-0.9) 10/11/22 15:57 GFR Calculation Not Reportable 10/11/22 15:57 Glucose 87 mg/dL (65-115) 10/11/22 15:57 Calculated Osmolality 292 mOsm/kg (285-295) 10/11/22 15:57 Calcium 10.1 mg/dL (8.5-10.5) 10/11/22 15:57 Total Bilirubin 0.3 mg/dL (0.15-1.2) 10/11/22 15:57 AST 24 U/L (0-32) 10/11/22 15:57 ALT 20 U/L (0-33) 10/11/22 15:57 Alkaline Phosphatase 27 U/L (35-105) L 10/11/22 15:57 Total Protein 6.7 g/dL (6.6-8.7) 10/11/22 15:57 Albumin 3.9 g/dL (3.5-5.2) 10/11/22 15:57 Globulin 2.8 g/dL (1.3-4.6) 10/11/22 15:57 Discharge Plan Discharge Condition: Stable Prescriptions: No Action montelukast [Singulair] 10 mg tablet 10 mg PO DAILY@23 Complete Multivitamin Tablet 1 tab PO DAILY fenofibrate 160 mg tablet 160 mg PO DAILY@10 trazodone 50 mg tablet 50 - 150 mg PO BEDTIME gabapentin 300 mg capsule 600 mg PO BID@, budesonide-formoterol [Symbicort] 160-4.5 mcg/actuation HFA aerosol inhaler 2 puff INHALATION BID simvastatin 20 mg tablet 20 mg PO DAILY isosorbide mononitrate 30 mg tablet extended release 24 hr 30 mg PO DAILY Qty: 15 0RF Rx Instructions: MUST make follow-up for further refills amlodipine 10 mg tablet 10 mg PO DAILY Qty: 90 3RF Referrals: Trent Caraballo MD [Primary Care Provider] - Coding Level of Care Code ED Concreter for [employer] Fwd NIH stroke score NIHSS Level Of Consciousness - 1a: 0 Level Of Consciousness Questions - 1b: Both Correct Level Of Consciousness Commands - 1c: Both Correct Best Gaze - 2: Normal Visual Briseno - 3: No Visual Loss Facial Palsy - 4: Normal Motor Arm Right - 5: No Drift Motor Arm Left - 5: No Drift Motor Leg Right - 6: Effort Against Nitro Motor Leg Left - 6: No Drift Limb Ataxia - 7: Absent Sensory - 8: Normal Best Language - 9: No Aphasia Dysarthia - 10: Normal Extinction And Inattention - 11: 0 Score Total Score: 2
[2022-10-11 16:12] LABS: Basophils % 0.8 %; Eosinophils # 0.1 10^3/uL (0.0-0.8); Hematocrit 36.8 % (37.0-47.0); Hemoglobin 11.2 g/dL (11.5-15.3); Lymphocytes # 1.7 10^3/uL (0.8-4.8); Lymphocytes % 34.9 %; Mean Corpuscular HGB Conc 30.4 g/dL (30.0-36.0); Mean Corpuscular Volume 82.1 fl (81-99); Mean Platelet Volume 10.6 fL (7.4-10.4); Monocytes # 0.4 10^3/uL (0.2-0.9); Monocytes % 7.8 %; Neutrophils % 54.3 %; Nucleated Red Blood Cells % 0 %; Platelet Count 143 10^3/cmm (130-400); Red Blood Count 4.48 10^6/uL (4.1-5.3); Red Cell Distribution Width 16.2 % (12.1-15.1)
[2022-10-11 16:23] LABS: INR 1.05 (0.8-1.2)
[2022-10-11 16:28] LABS: Alanine Aminotransferase 20 U/L (0-33); Albumin Level 3.9 g/dL (3.5-5.2); Alkaline Phosphatase 27 U/L (35-105); Anion Gap 15.7 (5-19); Aspartate Amino Transferase 24 U/L (0-32); Blood Urea Nitrogen 15 mg/dL (8-23); Calcium 10.1 mg/dL (8.5-10.5); Carbon Dioxide 24 mmol/L (22-29); Chloride 106 mmol/L (98-107); Globulin 2.8 g/dL (1.3-4.6); Glucose 87 mg/dL (65-115); Osmolality Calculated 292 mOsm/kg (285-295); Potassium 4.7 mmol/L (3.5-5.1); Sodium 141 mmol/L (136-145); Total Bilirubin 0.3 mg/dL (0.15-1.2); Total Protein 6.7 g/dL (6.6-8.7)
[2022-10-11] MEDS: aspirin 81 mg Chew Tablet 324 MG PO (17:09)
[2022-10-11 17:23] LABS: Add Urine Microscopic? NO; Charge for UA Resulting for Rev
[2022-10-11 17:28] LABS: Bilirubin Urine Neg (Negative); Blood Urine Neg (Negative); Glucose Urine UA Norm (Normal); Ketones Urine Negative (Negative); Leukocyte Esterase Urine Negative (Negative); Nitrate Urine Negative (Negative); Protein Urine Neg (Negative); Specific Gravity, Urine 1.015 (1.005-1.030); Urine Appearance Clear (CLEAR); Urine Color Yellow (Yellow); Urobilinogen Urine 1 mg/dL (Negative); pH Urine 6.5 (5-7)
--- NOTE | 2022-10-11 18:30 | P.HP_ITS ---
Providers/Chief Complaint Primary Care Provider: Trent Caraballo MD Chief Complaint: rt leg weakness History of Present Illness Pleasant 82-year-old lady came into ER due to new onset right-sided weakness around 1 PM this afternoon, in ER was found to have new mild diminished sensation on the right side, with concern for acute CVA was assessed by neurology, tPA was considered, heart, due to concern for risk of bleeding she declined. Her symptoms have since been showing improvement. Initially she could not stand up on the right side at all even with assistance. With improvement she with assistance was able to ambulate to the restroom. Currently right side diminished sensation has resolved. Review of Systems Const: Denies: fever(s), chills, body aches or malaise ENMT: Denies: throat pain, oral sores or ear or mastoid pain Card: Denies: chest pain, edema, pre-syncope or dyspnea on exertion Resp: Denies: dyspnea, productive cough, change in phlegm color or hemoptysis GI: Denies: abdominal pain, nausea, vomiting, diarrhea, constipation, hematochezia or melena : Denies: flank pain, urinary frequency or hematuria Musc: Denies: back pain, joint swelling or joint redness Skin/Breast: Denies: rash or new lesions Neuro: Reports: weakness in extremities and difficulty walking; Denies: headache(s), dizziness, confusion or seizure-like activity Endo: Denies: polyuria or polydipsia Medications/Allergies Home Medications Medication Instructions Recorded Confirmed Last Taken Type fenofibrate 160 mg tablet 160 mg PO DAILY@10 07/08/19 03/14/22 07/26/20 History montelukast 10 mg tablet 10 mg PO DAILY@23 07/08/19 03/14/22 07/25/20 History (Singulair) multivitamin,yd-ihdw-afgcrnrv 1 tab PO DAILY 07/08/19 03/14/22 07/25/20 History (Complete Multivitamin tablet) trazodone 50 mg tablet 50 - 150 mg PO BEDTIME 07/08/19 03/14/22 07/25/20 History budesonide-formoterol HFA 160 2 puff inhalation BID 11/11/19 03/14/22 07/26/20 History mcg-4.5 mcg/actuation aerosol inhaler (Symbicort) gabapentin 300 mg capsule 600 mg PO BID@12/23/19 03/14/22 07/26/20 History isosorbide mononitrate 30 mg 30 mg PO DAILY #15 tabs 06/13/21 03/14/22 Unknown Rx tablet,extended release 24 hr simvastatin 20 mg tablet 20 mg PO DAILY 03/14/22 03/14/22 Unknown History amlodipine 10 mg tablet 10 mg PO DAILY #90 tabs 04/12/22 Unknown Rx Allergies Allergy/AdvReac Type Severity Reaction Status Date / Time amoxicillin Allergy Severe Diarrhea Verified 10/11/22 15:22 PFSH Acute PFSH: Medical History (Updated 10/11/22 @ 19:26 by Gurvinder Styles MD) Aortic stenosis Displacement of lumbar disc with radiculopathy Hyperlipidemia LDL goal <130 Hypertension Palpitations Stenosis, spinal, lumbar Surgical History History of lumbar fusion Family History Mother Stroke Denies family history of Diabetes CAD (coronary artery disease) Clotting disorder Dementia Chronic kidney disease (CKD) Suicide Anesthesia complication Bleeding disorder Lung disease Cancer Social History Smoking and tobacco status: former smoker Alcohol intake: never Substance/Drug Use: never Lives independently: Yes Marital status: / Current occupational status: retired Vitals/I&O/Wt Last Vital Signs Temp 98.1 F 10/11/22 15:16 Pulse 60 10/11/22 17:09 Resp 18 10/11/22 18:26 BP 162/65 10/11/22 17:09 Pulse Ox 95 10/11/22 17:09 O2 Del Method Room Air 10/11/22 17:09 Weight last 48 hrs Weight 90.718 kg Physical Exam Narrative: Accompanied by her life partner. Const: COMMON NORMALS: patient oriented x3 and alert GENERAL APPEARANCE: cooperative ORIENTATION/CONSCIOUSNESS: Yes awake HENMT: COMMON NORMALS: oropharynx normal Neck/C-Spine: COMMON NORMALS: no JVD Resp: COMMON NORMALS: normal respiratory effort and clear to auscultation bilaterally AUSCULTATION: clear to auscultation bilaterally Cardio: COMMON NORMALS: no JVD, regular rhythm, S1 normal heart sound present, S2 normal heart sound present and No murmurs present (Cardio) RHYTHM: regular rhythm HEART SOUNDS: S1 normal heart sound present and S2 normal heart sound present GI: COMMON NORMALS: Normal to inspection, nondistended, normoactive bowel sounds present, Soft to palpation and non-tender PALPATION: Yes Soft to palpation Extremity: COMMON NORMALS: no joint enlargement NARRATIVE EXTREMITY EXAM: Mild right ankle edema Neuro: COMMON NORMALS: patient oriented x3 and moves all extremities SENSORIUM/ORIENTATION: Yes alert OTHER: She is awake, alert, keenly responsive. No trouble tracking. No diplopia. No facial droop. Visual yuan full to confrontation. No visual extinction. No trouble with FNF. No upper extremity drift. RLE drift, hits bed. Sensation symmetrical, no sensory extinction. Skin: COMMON NORMALS: no rashes or lesions noted GENERAL SKIN EXAM: no rashes or lesions noted Data 10/11/22 15:57 10/11/22 15:57 A&P Assessment and plan (1) Acute focal neurological deficit: Acute onset weakness right lower extremity this afternoon around 1 PM, in ER also noted diminished sensation on right side. Symptoms have been improving. Initially could not stand up even with assistance, subsequently with assistance able to ambulate to the restroom. Sensory asymmetry has resolved. Discussed with her and her life partner, possible small CVA versus TIA. Discussed risk of recurrent events. Discussed continuation of aspirin, increase of statin to high intensity. Additional assessment with MRI, as well as of risk factors including with carotid Doppler, A1c, monitoring on telemetry for atrial fibrillation. TTE bubble study. PT, OT, ST assessment. Case management consultation. Blood pressure labile in ER, initially soft, subsequently elevated up to 186 systolic, subsequently low blood pressure during my visit, systolic blood pressure down to 96. For now permissive hypertension. Will not resume her antihypertensives, hold gabapentin as well. Lower trazodone dose. We will give gentle infusion of LR 75 mill per hour. At risk of worsening symptoms in case of labile blood pressures. Monitor blood pressures. Severe aortic stenosis may complicate matters. At risk of deterioration. At risk of CHF, monitor volume and respiratory status, oxygenation. She is very concerned regarding bleeding. Bleeds easily. We will have to discuss with her consideration of Plavix in addition to aspirin. (2) Right leg weakness: As above. (3) Difficulty walking: As above. (4) Labile blood pressure: As above, LR infusion, follow-up blood pressures. Hold antihypertensives. Noted history of severe aortic stenosis. Plan Mild right ankle edema: Obtain venous duplex. History of lumbar spine stenosis HLD HTN ER documentation reviewed. Discussed with ER physician. Attestations Medical Necessity Statement*: Admission of over 2 midnights anticipated for assessment management of CVA, labile blood pressure, complicated by severe aortic stenosis, at risk of det erioration. Diagnoses Acute focal neurological deficit R29.818 Right leg weakness R29.898 Difficulty walking R26.2 Labile blood pressure R09.89
--- NOTE | 2022-10-11 20:12 | USCV_ITS ---
Kylie Kumar Age: 82 Gender: F : 1940 Exam Date: 10/11/2022 20:38 Ordering Phys: Gurvinder Styles MD Technologist: NISHA Exam Location: [facility] [place] Indication: RIGHT hemiparesis CVA. No history of DVT per patient HISTORY: RIGHT hemiparesis CVA. No history of DVT per patient PROCEDURES: Venous duplex imaging was performed in only the right lower extremity. The following venous structures were evaluated: common femoral vein, profunda vein, proximal portion of the greater saphenous vein, superficial femoral vein, and the popliteal vein. In addition, the posterior tibial and peroneal veins were evaluated. FINDINGS: Normal 2-D Doppler and augmentation and compressibility throughout the lower extremity venous structures. Additional imaging through the proximal calf veins also reveals no thrombus. Limited evaluation of the greater saphenous vein is patent with no thrombus. CONCLUSIONS No DVT right lower extremity. Dr. Jennifer Field DO (Electronically Signed) Final Date: 12 October 2022 07:05 S
--- NOTE | 2022-10-11 20:12 | USCV_ITS ---
Kylie Kumar Age: 82 Gender: F : 1940 Exam Date: 10/11/2022 20:54 Ordering Phys: Gurvinder Styles MD Technologist: NISHA [place] [facility] [place]: RIGHT hemiparesis CVA. Quit smoking 2001. No DM. No prior TIA or CVA. Risk Factors: RIGHT hemiparesis CVA. Quit smoking 2001. No DM. No prior TIA or CVA. Previous Vascular Surgery: None Right Brachial BP: 162 / 65 Left Brachial BP: / Right Left Velocity (cm/s) Spectral Plaque Velocity (cm/s) Spectral Plaque Syst/Diast Broadening Syst/Diast Broadening 80.50/ 8.80 Min Homo Prox CCA 73.50 / 8.50 Min Homo 69.90/ 7.80 Min Homo Mid CCA 82.00 / 12.00 Min Homo 62.10/ 7.80 Min Hetro Distal CCA 70.10 / 12.00 Min Hetro 79.20/ 12.40 Min [place] Prox ICA 59.00 / 15.40 Mod Hetro 143.20/24.70 Mod Hetro Mid ICA 86.80 / 22.00 Mod Hetro 105.60/12.40 Mod Hetro Distal ICA 78.00 / 18.70 Mod Hetro 76.90 Min Homo ECA 71.80 Mod Hetro 1.78 ICA/CCA 1.06 Antegrade Vertebral Antegrade 62.10/ 12.40 cm/s 47.00/ 8.50 cm/s Tri Subclavian Tri 85.40 72.60 FINDINGS Comparison:. 04/17/18 No significant elevation of systolic or diastolic velocities. Waveforms are normal. Minimal bilateral, atherosclerosis with no elevation of velocity. Antegrade vertebral arteries. CONCLUSIONS Bilateral ICA stenosis less than 50%. Minimal carotid atherosclerosis. Dr. Jennifer Field DO (Electronically Signed) Final Date: 12 October 2022 07:08 S
[2022-10-11] MEDS: trazodone 50 mg Tablet 25 MG PO (21:30)
[2022-10-11] MEDS: lactated ringers 1,000 ML 75 ML IV (21:30)
[2022-10-11] MEDS: montelukast sodium 10 mg Tablet PO (23:08)
[2022-10-11] MEDS: atorvastatin 40 mg Tablet PO (23:11)
[2022-10-12] VITALS (7 sets, daily range): BP systolic 117–185; BP diastolic 55–79; PULSE 61–76; RESP 16–18; TEMP 36.5–36.7; O2SAT 92–98
[2022-10-12 01:10] LABS: Chol HDL Ratio 3.69 mg/dL (0.0-4.40); Cholesterol 129 mg/dL (0-200); HDL Cholesterol 35 mg/dL (60-100); LDL Cholesterol Calculated 50 mg/dL (50-129); LDL HDL Ratio 1.43 RATIO (0.00-3.22); Triglycerides 219 mg/dL (0-150)
[2022-10-12 01:14] LABS: Estmated Average Glucose 103; Hemoglobin A1C 5.2 % (4.0-6.0)
[2022-10-12] MEDS: aspirin 81 mg EC Tablet PO (08:10)
--- NOTE | 2022-10-12 11:48 | PC.PHAR ---
pt states she is still taking gabapentin 600mg bid ext shows last filled 05/07/22 90d/s-pt states she takes no half tabs ext shows isosorbide mononitrate er 30mg takes 1/2 daily filled 09/29/22 90d/s #45 tabs 90d/s-pt states she takes a full tab daily-notes are made in the pharmacy comments
--- NOTE | 2022-10-12 17:25 | P.DS_ITS ---
Discharge Providers Date of Admission: 10/11/22 17:09 Date of Discharge: October 12, 2022 Attending Provider at Admission: Gurvinder Styles Attending Provider at Discharge: Gurvinder Styles Primary Care Provider: Trent Caraballo MD Diagnoses at Discharge Discharge Diagnosis (1) Acute focal neurological deficit: Status: Acute (2) Right leg weakness: Status: Acute (3) Difficulty walking: Status: Acute (4) Labile blood pressure: Status: Acute Reason for Visit Reason for Visit: rt leg weakness Hospital Course Hospital Course Pleasant 82-year-old lady was admitted after presenting with new right-sided weakness unable to bear any weight with weakness of right lower extremity, on assessment in ER also diminished sensation on the right compared to left, with concern for acute CVA was assessed by telestroke neurology team, with tPA recommendation which she declined at the time. She was admitted for additional assessment and management. Her symptoms improved and today are completely resolved sooner than anticipated. She is feeling back to her usual self and requested discharge home. With resolution of symptoms suspected TIA, MRI obtained, no CVA noted. She was assessed with carotid duplex which did not show significant stenosis. Echocardiogram bubble study performed, no intracardiac shunts noted, normal EF. EKG without atrial fibrillation. She is continued on aspirin which she says was already taking at home, and as per discussion with her with moderate to high risk TIA started on 21 days of Plavix alongside aspirin after discussion of potential adverse effects. She already takes statin at home, simvastatin, this is switched to atorvastatin. Please monitor for any symptoms of rhabdomyolysis as she is also on fibrate. She is asked to continue monitoring blood pressure, continue to optimize control, cautiously, however, since blood pressure noted with some fluctuation, at times up to as high as 185/68, other times down to 117/55. [place] intensive control may lead to hypotension. She is asked to follow-up with neurology. Physical Exam Narrative: Life partner at bedside. Const: COMMON NORMALS: patient oriented x3 and alert GENERAL APPEARANCE: cooperative ORIENTATION/CONSCIOUSNESS: Yes awake HENMT: COMMON NORMALS: oropharynx normal Neck/C-Spine: COMMON NORMALS: no JVD Resp: COMMON NORMALS: normal respiratory effort and clear to auscultation bilaterally AUSCULTATION: clear to auscultation bilaterally Cardio: COMMON NORMALS: no JVD, regular rhythm, S1 normal heart sound present, S2 normal heart sound present and No murmurs present (Cardio) RHYTHM: regular rhythm HEART SOUNDS: S1 normal heart sound present and S2 normal heart sound present GI: COMMON NORMALS: Normal to inspection, nondistended, normoactive bowel s ounds present, Soft to palpation and non-tender PALPATION: Yes Soft to palpation Extremity: COMMON NORMALS: no joint enlargement and no pedal edema Neuro: COMMON NORMALS: patient oriented x3 and moves all extremities SENSORIUM/ORIENTATION: Yes alert Skin: COMMON NORMALS: no rashes or lesions noted GENERAL SKIN EXAM: no rashes or lesions noted Discharge Data Studies Completed and Pending Completed Studies During Hospitalization Category Date Time Status CT head wo con* [id number] Stat Cat Scan 10/11/22 15:26 Completed MR head wo con* [id number] Routine MRI 10/12/22 20:12 Completed CV carotid duplex BI* [id number] Routine Ultrasound 10/11/22 06:00 [place] [id number] Routine Ultrasound 10/11/22 20:12 Completed CV. echo w/w bubble cont [id number] Routine Ultrasound 10/11/22 Completed Radiology Impressions Head CT 10/11/22 15:26 IMPRESSION: 1. No evidence of intracranial hemorrhage or mass effect. 2. Moderate small vessel changes. Moderate parenchymal volume loss. 3. Intracranial vascular calcification. 4. No acute intracranial findings. Notified Kathrine Garcia MD at 10/11/2022 3:45 PM. Head MRI 10/12/22 20:12 IMPRESSION: 1. No diffusion-weighted abnormalities or acute infarct. 2. Mild cerebral atrophy. 3. Moderate small vessel ischemic changes within the supratentorial white matter. Laboratory Results WBC 5.0 10^3/uL (4.0-10.0) 10/11/22 15:57 RBC 4.48 10^6/uL (4.1-5.3) 10/11/22 15:57 Hgb 11.2 g/dL (11.5-15.3) L 10/11/22 15:57 Hct 36.8 % (37.0-47.0) L 10/11/22 15:57 MCV 82.1 fl (81-99) 10/11/22 15:57 MCH 25.0 pg (28.0-34.0) L 10/11/22 15:57 MCHC 30.4 g/dL (30.0-36.0) 10/11/22 15:57 RDW 16.2 % (12.1-15.1) H 10/11/22 15:57 Plt Count 143 10^3/cmm (130-400) 10/11/22 15:57 MPV 10.6 fL (7.4-10.4) H 10/11/22 15:57 Neut % (Auto) 54.3 % 10/11/22 15:57 Lymph % (Auto) 34.9 % 10/11/22 15:57 [place] % (Auto) 7.8 % 10/11/22 15:57 Eos % (Auto) 2.0 % 10/11/22 15:57 Baso % (Auto) 0.8 % 10/11/22 15:57 Neut # (Auto) 2.70 10^3/uL (1.8-7.7) 10/11/22 15:57 Lymph # (Auto) 1.7 10^3/uL (0.8-4.8) 10/11/22 15:57 [place] # (Auto) 0.4 10^3/uL (0.2-0.9) 10/11/22 15:57 Eos # (Auto) 0.1 10^3/uL (0.0-0.8) 10/11/22 15:57 Baso # (Auto) 0.0 10^3/uL (0.0-0.1) 10/11/22 15:57 Nucleated RBC % (auto) 0 % 10/11/22 15:57 Nucleated RBCs # 0.0 /100WBC 10/11/22 15:57 PT 14.10 SECONDS (12.1-14.9) 10/11/22 15:57 INR 1.05 (0.8-1.2) 10/11/22 15:57 Sodium 141 mmol/L (136-145) 10/11/22 15:57 Potassium 4.7 mmol/L (3.5-5.1) 10/11/22 15:57 Chloride 106 mmol/L (98-107) 10/11/22 15:57 Carbon Dioxide 24 mmol/L (22-29) 10/11/22 15:57 Anion Gap 15.7 (5-19) 10/11/22 15:57 BUN 15 mg/dL (8-23) 10/11/22 15:57 Creatinine 0.8 mg/dL (0.5-0.9) 10/11/22 15:57 GFR Calculation Not Reportable 10/11/22 15:57 Glucose 87 mg/dL (65-115) 10/11/22 15:57 Estimat Average Glucose 103 10/11/22 15:57 Hemoglobin A1c 5.2 % (4.0-6.0) 10/11/22 15:57 Calculated Osmolality 292 mOsm/kg (285-295) 10/11/22 15:57 Calcium 10.1 mg/dL (8.5-10.5) 10/11/22 15:57 Total Bilirubin 0.3 mg/dL (0.15-1.2) 10/11/22 15:57 AST 24 U/L (0-32) 10/11/22 15:57 ALT 20 U/L (0-33) 10/11/22 15:57 Alkaline Phosphatase 27 U/L (35-105) L 10/11/22 15:57 Total Protein 6.7 g/dL (6.6-8.7) 10/11/22 15:57 Albumin 3.9 g/dL (3.5-5.2) 10/11/22 15:57 Globulin 2.8 g/dL (1.3-4.6) 10/11/22 15:57 Triglycerides 219 mg/dL (0-150) H 10/11/22 15:57 Cholesterol 129 mg/dL (0-200) 10/11/22 15:57 LDL Cholesterol, Calc 50 mg/dL (50-129) 10/11/22 15:57 HDL Cholesterol 35 mg/dL (60-100) L 10/11/22 15:57 LDL/HDL Ratio 1.43 RATIO (0.00-3.22) 10/11/22 15:57 Cholesterol/HDL Ratio 3.69 mg/dL (0.0-4.40) 10/11/22 15:57 Urine Color Yellow (Yellow) 10/11/22 17:10 Urine Appearance Clear (CLEAR) 10/11/22 17:10 Urine pH 6.5 (5-7) 10/11/22 17:10 Ur Specific [place] 1.015 (1.005-1.030) 10/11/22 17:10 Urine Protein Neg (Negative) 10/11/22 17:10 Urine Glucose (UA) Norm (Normal) 10/11/22 17:10 Urine Ketones Negative (Negative) 10/11/22 17:10 Urine Blood Neg (Negative) 10/11/22 17:10 Urine Nitrate Negative (Negative) 10/11/22 17:10 Urine Bilirubin Neg (Negative) 10/11/22 17:10 Urine Urobilinogen 1 mg/dL (Negative) H 10/11/22 17:10 Ur Leukocyte Esterase Negative (Negative) 10/11/22 17:10 Vitals Last Vital Signs Temp 98.0 F 10/12/22 15:00 Pulse 73 10/12/22 15:00 Resp 18 10/12/22 15:00 BP 142/79 10/12/22 15:00 Pulse Ox 96 10/12/22 15:00 O2 Del Method Room Air 10/12/22 15:00 Discharge Plan Discharge Patient Disposition: Home Condition: Stable Prescriptions: New clopidogrel 75 mg tablet 75 mg PO DAILY Qty: 21 0RF atorvastatin 40 mg Tablet 40 mg PO BEDTIME Qty: 90 0RF Continued montelukast [Singulair] 10 mg tablet 10 mg PO BEDTIME fenofibrate 160 mg tablet 160 mg PO DAILY trazodone 50 mg tablet 100 mg PO BEDTIME budesonide-formoterol [Symbicort] 160-4.5 mcg/actuation HFA aerosol inhaler 2 puff INHALATION BID PRN (Reason: unknown) amlodipine 10 mg tablet 10 mg PO DAILY Qty: 90 3RF multivitamin Tablet 1 tab PO DAILY losartan 50 mg tablet 50 mg PO DAILY gabapentin 600 mg tablet 600 mg PO BID donepezil 10 mg tablet 10 mg PO BEDTIME Claritin 10 mg Tablet 10 mg PO QAM isosorbide mononitrate 30 mg tablet extended release 24 hr 30 mg PO DAILY Rx Instructions: MUST make follow-up for further refills Discontinued simvastatin 20 mg tablet 20 mg PO QPM Discharge Orders: Discharge Order (Routine); Ordered 10/12/22 Ordered By: Gurvinder Styles Referrals: [facility] PROVID[facility] [Provider Group] - 1 week (The neurology office will call with your follow up appointment.) Trent Caraballo MD [Primary Care Provider] - 10/17/22 1:05 pm Discharge Diet: Cardiac Discharge Activity: As per PT/OT instructions Patient Instructions: Aspirin (By mouth), Clopidogrel (By mouth), Transient Ischemic Attack (GEN), Ischemic Stroke (GEN), Stroke Stoplight Activity Restrictions/Additional Instructions: Please follow-up with your primary doctor and with neurology for reassessment after TIA. In case of experiencing any new weakness, numbness, difficulty speaking or difficulty seeing, call 911 immediately. Continue aspirin 81 mg daily. As per discussion you are also started on Plavix due to elevated ABCD risk score. Please note both these medications do thin your blood to some degree. Avoid any injury. In case of experiencing bleeding which is not stopping seek medical attention immediately. Continue to monitor blood pressures at home 3 times daily, write down values to bring to your follow-up appointment. Continue to work with your primary provider to optimize blood pressure control. Your blood pressures are noted to be somewhat labile, sometimes high, sometimes on the lower side. Discussed with your primary doctor caution so as not to get your blood pressure is too low with treatment. Please note your cholesterol medication changed to high intensity statin, atorvastatin 40 mg to help reduce chance of stroke going forward, however, in combination with fibrate may increase risk of rhabdomyolysis, please discuss with your primary doctor to continue close monitoring, in case of any symptoms of bothersome muscle pain, weakness, or any other, seek medical attention. Discharge Attestations Time Spent in Discharge Care*: greater than 30 min Quality Metrics Clinical Quality Measures [ No reported AMI, CVA or VTE this stay] Coding Level of Care Code 66268 Total time (in minutes) for Discharge: 45 Diagnoses Acute focal neurological deficit R29.818 Right leg weakness R29.898 Difficulty walking R26.2 Labile blood pressure R09.89
--- NOTE | 2022-10-12 20:12 | MR_ITS ---
WS: [id number] MRI BRAIN WITHOUT CONTRAST HISTORY: cva COMPARISON: None available. TECHNIQUE: Diffusion imaging, multiplanar T1, T2 and FLAIR imaging obtained. No evidence for acute infarct or hemorrhage. Salazar-white matter differentiation is normal. Mild cerebral atrophy. There is a moderate amount of T2 and FLAIR signal hyperintensity scattered thr oughout the white matter predominantly involving the frontal and parietal lobes. Ventricles and extra-axial spaces are normal. No inferior displacement of cerebellar tonsils. The sella turcica and pituitary gland are unremarkabl e. Dural venous sinuses and [place] demonstrate no abnormality on this unenhanced studies. Paranasal sinuses: Moderate-sized mucous retention cyst in the LEFT maxillary sinus. Mastoid air cells: Normal. Calvarium and scalp: Intact. MR/MR head wo con* [id number] IMPRESSION: 1. No diffusion-weighted abnormalities or acute infarct. 2. Mild cerebral atrophy. 3. Moderate small vessel ischemic changes within the supratentorial white ran er.
== END 2022-10-12 18:42 | disposition home or self-care (01) ==
LOC: ER 16:48 → MEDSURG 21:39
PROVIDERS: Admitting Provider Internal Medicine; Emergency Provider Emergency Medicine; PCP Family Medicine; Visit Provider Internal Medicine
DX: G81.91 Hemiplegia, unspecified affecting right dominant side (principal); Z87.891 Personal history of nicotine dependence; R00.1 Bradycardia, unspecified; E78.5 Hyperlipidemia, unspecified; I08.3 Combined rheumatic disorders of mitral, aortic and tricuspid valves; Z79.82 Long term (current) use of aspirin; R60.0 Localized edema
CPT/HCPCS: 36415; 70450; 70551; 80053; 80061; 81003; 83036; 85025; 85610; 92523; 93005; 93880; 93971; 96360; 96361; 97161; 97165; 99285; C8929; G0378; J7120

== ENCOUNTER 2022-10-18 09:18 | Outpatient (RCR) | payer MEDICARE, SELFPAY | END 2022-11-05 23:59 | disposition home or self-care (01) | LOC: SPT 09:18 | PROVIDERS: PCP Family Medicine; Visit Provider Family Medicine | DX: M25.511 Pain in right shoulder (principal) | CPT/HCPCS: 97161 ==

== ENCOUNTER 2022-10-29 20:00 | Outpatient (CLI) | payer MEDICARE, SELFPAY | END 2022-10-29 20:01 | disposition home or self-care (01) | LOC: SLEEP 10-30 05:18 | PROVIDERS: PCP Family Medicine; Visit Provider Family Medicine | DX: G47.33 Obstructive sleep apnea (adult) (pediatric) (principal) | CPT/HCPCS: 95810 ==

== ENCOUNTER → 2022-11-05 12:54 | Outpatient (BNVA) | payer MEDICARE, SELFPAY | PROVIDERS: PCP Family Medicine; Visit Provider Specialist | DX: I35.0 Nonrheumatic aortic (valve) stenosis (principal); I10 Essential (primary) hypertension; Z09 Encounter for follow-up examination after completed treatment for conditions other than malignant neoplasm; G45.1 Carotid artery syndrome (hemispheric); G30.9 Alzheimer's disease, unspecified; F02.80 Dementia in other diseases classified elsewhere, unspecified severity, without behavioral disturbance, psychotic disturbance, mood disturbance, and anxiety; F02.C0 Dementia in other diseases classified elsewhere, severe, without behavioral disturbance, psychotic disturbance, mood disturbance, and anxiety; Z87.891 Personal history of nicotine dependence | CPT/HCPCS: 96116; 99205 ==

== ENCOUNTER → 2022-12-05 12:41 | Outpatient (BNVA) | payer MEDICARE, SELFPAY | PROVIDERS: PCP Family Medicine; Visit Provider Internal Medicine | DX: I10 Essential (primary) hypertension (principal); I35.0 Nonrheumatic aortic (valve) stenosis; I49.1 Atrial premature depolarization; I49.3 Ventricular premature depolarization | CPT/HCPCS: 93270 ==

== ENCOUNTER 2023-02-05 13:34 | Emergency (ER) | payer MEDICARE, SELFPAY ==
[2023-02-05] VITALS (65 sets, daily range): BP systolic 88–154; BP diastolic 41–86; PULSE 68–85; RESP 18; TEMP 36.4–36.8; O2SAT 92–100; BMI 28.5
[2023-02-05 14:41] LABS: Basophils % 0.5 %; Eosinophils # 0.1 10^3/uL (0.0-0.8); Eosinophils % 1.4 %; Lymphocytes # 1.3 10^3/uL (0.8-4.8); Lymphocytes % 22.2 %; Mean Corpuscular HGB Conc 26.8 g/dL (30-55); Mean Corpuscular Hemoglobin 21.1 pg (27-33); Mean Corpuscular Volume 78.9 fl (85-98); Mean Platelet Volume 11.6 fL (7.4-10.4); Monocytes # 0.4 10^3/uL (0.2-0.9); Monocytes % 7.3 %; Neutrophils # 4.01 10^3/uL (1.8-7.7); Neutrophils % 67.9 %; Nucleated Red Blood Cells % 0.3 %; Platelet Count 153 10^3/cmm (157-399); Red Blood Count 2.51 10^6/uL (3.85-5.65)
[2023-02-05 14:53] LABS: INR 1.18 (0.8-1.2)
[2023-02-05 14:56] LABS: Hematocrit 19.8 % (36-47)
[2023-02-05 14:57] LABS: Alanine Aminotransferase 11 U/L (0-33); Albumin Level 3.8 g/dL (3.5-5.2); Alkaline Phosphatase 22 U/L (35-105); Anion Gap 13.3 (5-19); Aspartate Amino Transferase 16 U/L (0-32); Blood Urea Nitrogen 33 mg/dL (8-23); Calcium 9.6 mg/dL (8.5-10.5); Carbon Dioxide 23 mmol/L (22-29); Chloride 105 mmol/L (98-107); Globulin 2.4 g/dL (1.3-4.6); Glucose 127 mg/dL (65-115); Osmolality Calculated 293 mOsm/kg (285-295); Potassium 4.3 mmol/L (3.5-5.1); Sodium 137 mmol/L (136-145); Total Bilirubin 0.3 mg/dL (0.15-1.2); Total Protein 6.2 g/dL (6.6-8.7)
--- NOTE | 2023-02-05 15:23 | CTR_ITS ---
PROCEDURE INFORMATION: Exam: CT Abdomen And Pelvis With Contrast Exam date and time: 02/05/2023 5:16 PM Age: 82 years old Clinical indication: Other: Gi bleed; Prior surgery; Surgery date: 6+ months; Surgery type: Lumbar; Additional info: Gi bleed, tarry stools anemia TECHNIQUE: Imaging protocol: Computed tomography of the abdomen and pelvis with contrast. Sagittal and coronal reformatted images were created and reviewed. Radiation optimization: All CT scans at this facility use at least one of these dose optimization techniques: automated exposure control; mA and/or kV adjustment per patient size (includes targeted exams where dose is matched to clinical indication); or iterative reconstruction. Contrast material: OMNI 350; Contrast volume: 100 ml; Contrast route: INTRAVENOUS (IV); REPORTING DATA: Count of CT and Cardiac NM exams in prior 12 months: This patient has received [address] and 0 known cardiac nuclear medicine studies in the 12 months prior to the current study. COMPARISON: CR XR hip RT 2-3V wo/w pel* [id number] 10/13/2020 11:17 AM RADIATION DOSE METRICS: Total DLP (mGy-cm): 750 FINDINGS: Pleural spaces: No pleural effusion. Heart: Visualized heart is normal in size. Coronary arteries: Mild atherosclerotic calcification in the coronary arteries. Liver: Multiple simple cysts in the liver. The 2 largest cysts abutting each other in the left lobe and collectively measure 3.2 cm. Gallbladder and bile ducts: The gallbladder is unremarkable. No biliary ductal dilatation. Pancreas: The pancreas is unremarkable. No pancreatic ductal dilatation. Spleen: The spleen is unremarkable. Adrenal glands: The right and left adrenal glands are unremarkable. Kidneys and ureters: Subcentimeter hypodense foci in both right and left kidneys that are too small to characterize, however likely represent small cysts. Simple cyst in the left kidney measuring 2.0 cm. The right and left ureters are unremarkable. Stomach and bowel: The stomach is unremarkable for the degree of distension. No acute abnormality in the small bowel. Numerous diverticula throughout the colon. No evidence for diverticulitis. No acute abnormality in the small bowel. No evidence for gastrointestinal bleed. Appendix: Appendix not definitely visualized. No inflammatory changes in the pericecal region however. Intraperitoneal space: No free intraperitoneal air. No ascites. No loculated fluid collections to suggest an abscess. Vasculature: Mild atherosclerotic changes in the visualized arteries. Extensive atherosclerotic changes in the visualized arteries. No evidence for aortic aneurysm or aortic dissection. Hepatic veins, portal veins, splenic vein, and SMV are patent. Lymph nodes: No lymphadenopathy. Urinary bladder: The bladder is unremarkable for the degree of distension. Reproductive: Patient has had a previous hysterectomy. The ovaries are not definitely visualized, not an expected in a postmenopausal female. This may be due to ovarian atrophy. Alternatively, the patient may have had a previous bilateral oophorectomy. Bones/joints: Bones are diffusely osteopenic. Degenerative changes in the spine and hips. Mild spinal canal stenosis at L2-L3 through L5-S1. Multilevel foraminal stenosis of varying severity in the lumbar spine. Soft tissues: No acute abnormality in the extra-abdominal soft tissues. CT/CT abdomen pelvis w con* [id number] IMPRESSION: 1. No evidence for gastrointestinal bleed. Nuclear medicine imaging with tagged red blood cell scan may be obtained for further evaluation if clinical concern for gastrointestinal bleed persists. 2. No acute abnormality in the abdomen or pelvis. 3. Colonic diverticulosis. No evidence for diverticulitis. 4. Incidental/nonacute findings are listed in the report. COMMENTS: Consistent with the [employer]'s Incidental Findings Committee white paper (J Am Rodolfo Radiol 2018): Any incidental renal lesion less than 1 cm or classified as too small to characterize, or any incidental cystic renal lesion characterized as simple-appearing, is likely benign. No follow-up imaging is recommended for these lesions per consensus recommendations based on imaging criteria.
--- NOTE | 2023-02-05 15:31 | ED_ITS ---
HPI - GI Bleed General: Chief complaint: GI Bleed Stated complaint: blood in stool, weakness Time Seen by Provider: 02/05/23 14:58 History of Present Illness: Patient presents to the ER with complaints of dark tarry stools x1 week. Patient also been having weakness and pale skin. Patient was out of town and did not seek medical treatment for this until this morning. Patient went to her primary care doctor and he told her to come to the ER. Upon arrival patient's blood pressure was 96/41. Patient denies being on any blood thinners patient denies any abdominal pain nausea vomiting Review of Systems General: Reports: 10 or more systems reviewed and unremarkable except in HPI and below PFSH ED PFSH: Medical History Aortic stenosis Displacement of lumbar disc with radiculopathy Hyperlipidemia LDL goal <130 Hypertension Palpitations Stenosis, spinal, lumbar Surgical History History of lumbar fusion Family History Mother Stroke Denies family history of Diabetes CAD (coronary artery disease) Clotting disorder Dementia Chronic kidney disease (CKD) Suicide Anesthesia complication Bleeding disorder Lung disease Cancer Social History Smoking and tobacco/nicotine status: former use of tobacco/nicotine Alcohol intake: never Substance/Drug Use: never Lives independently: Yes Marital status: / Current occupational status: retired Physical Exam Const: COMMON NORMALS: no acute distress, average body habitus, patient oriented x3, no limitations, healthy appearing, alert and well nourished HENMT: COMMON NORMALS: normocephalic, atraumatic, hearing grossly normal bilaterally, external ears normal, Normal external nose present, moist oral mucous membranes and oropharynx normal HEAD & SCALP: normocephalic and atraumatic NOSE: Normal external nose present EXTERNAL EAR: Yes external ears normal Eye: COMMON NORMALS: Equal, round and reactive pupils present, EOMs intact bilaterally, conjunctivae normal and no scleral icterus CONJUNCTIVA: Yes conjunctivae normal PUPIL: Yes Equal, round and reactive pupils present Neck/C-Spine: COMMON NORMALS: full ROM, no lymphadenopathy, supple, no meninge al signs, no JVD and Thyroid normal THYROID: Thyroid normal Chest: COMMONS NORMALS: normal inspection of the chest and normal palpation of entire chest wall Resp: COMMON NORMALS: normal respiratory effort, No retractions, No use of accessory muscles and clear to auscultation bilaterally AUSCULTATION: clear to auscultation bilaterally Cardio: COMMON NORMALS: no JVD, regular rate, regular rhythm, S1 normal heart sound present, S2 normal heart sound present, No gallops present (Cardio), No clicks present (Cardio), No murmurs present (Cardio) and No rub (Cardio) RATE : regular rate RHYTHM: regular rhythm HEART SOUNDS: S1 normal heart sound present and S2 normal heart sound present GI: COMMON NORMALS: Normal to inspection, nondistended, normoactive bowel sounds present, Soft to palpation, non-tender, No hepatosplenomegaly present and no masses PALPATION: Yes Soft to palpation and Yes No hepatosplenomegaly present : COMMON NORMALS: Yes no CVA tenderness BLADDER/KIDNEY EXAM: Yes no CVA tenderness Back/Pelvis: COMMON NORMALS: no CVA tenderness Neuro: COMMON NORMALS: patient oriented x3 SENSORIUM/ORIENTATION: Yes alert MENINGEAL SIGNS: Yes no meningeal signs Course Vital Signs: Vital signs: Vital Signs Temperature 97.9 F 02/05/23 17:59 Pulse Rate 74 02/05/23 17:59 Respiratory Rate 18 02/05/23 17:26 Blood Pressure 88/53 02/05/23 17:59 Pulse Oximetry 98 02/05/23 17:59 Oxygen Delivery Me thod Room Air 02/05/23 13:55 MDM - GI Bleed Medical Decision Making Patient presents to the ER with dark stools x1 week weakness and pale. Lab work showed she had a hemoglobin of 5.3 and hematocrit of 19.8. CT of the abdomen pelvis did not show any acute source of acute GI bleed. Patient will be given 2 units packed red blood cells in the ER and then DC'd home. Patient should follow-up with her PCP for further evaluation testing which may include EGD and colonoscopy. Differential Diagnosis Likely Upper gastrointestinal hemorrhage and melena; Unlikely hemorrhoids, infectious diarrhea, esophageal varices, gastritis, Awilda-Napoles syndrome, Lower gastrointestinal hemorrhage, hematochezia or anal fissure Medical Records I reviewed the patient's medical records. Lab Data I reviewed the patient's lab results. 10/31/23 13:30 02/05/23 13:30 Radiology Impressions Abdomen/Pelvis CT 02/05/23 15:23 IMPRESSION: 1. No evidence for gastrointestinal bleed. Nuclear medicine imaging with tagged red blood cell scan may be obtained for further evaluation if clinical concern for gastrointestinal bleed persists. 2. No acute abnormality in the abdomen or pelvis. 3. Colonic diverticulosis. No evidence for diverticulitis. 4. Incidental/nonacute findings are listed in the report. COMMENTS: Consistent with the [employer]'s Incidental Findings Committee white paper (J Am Rodolfo Radiol 2018): Any incidental renal lesion less than 1 cm or classified as too small to characterize, or any incidental cystic renal lesion characterized as simple-appearing, is likely benign. No follow-up imaging is recommended for these lesions per consensus recommendations based on imaging criteria. Laboratory Results WBC 5.90 10^3/uL (3.29-11.43) 02/05/23 13:30 RBC 2.51 10^6/uL (3.85-5.65) L 02/05/23 13:30 Hgb 5.30 g/dL (11.27-16.99) L* 02/05/23 13:30 Hct 19.8 % (36-47) L* 02/05/23 13:30 MCV 78.9 fl (85-98) L 02/05/23 13:30 MCH 21.1 pg (27-33) L 02/05/23 13:30 MCHC 26.8 g/dL (30-55) L 02/05/23 13:30 RDW 19.0 % (12.1-15.1) H 02/05/23 13:30 Plt Count 153 10^3/cmm (157-399) L 02/05/23 13:30 MPV 11.6 fL (7.4-10.4) H 02/05/23 13:30 Neut % (Auto) 67.9 % 02/05/23 13:30 Lymph % (Auto) 22.2 % 02/05/23 13:30 Roberts % (Auto) 7.3 % 02/05/23 13:30 Eos % (Auto) 1.4 % 02/05/23 13:30 Baso % (Auto) 0.5 % 02/05/23 13:30 Neut # (Auto) 4.01 10^3/uL (1.8-7.7) 02/05/23 13:30 Lymph # (Auto) 1.3 10^3/uL (0.8-4.8) 02/05/23 13:30 Roberts # (Auto) 0.4 10^3/uL (0.2-0.9) 02/05/23 13:30 Eos # (Auto) 0.1 10^3/uL (0.0-0.8) 02/05/23 13:30 Baso # (Auto) 0.0 10^3/uL (0.0-0.1) 02/05/23 13:30 Nucleated RBC % (auto) 0.3 % 02/05/23 13:30 Nucleated RBCs # 0.0 /100WBC 02/05/23 13:30 PT 15.40 SECONDS (12.1-14.9) H 02/05/23 13:30 INR 1.18 (0.8-1.2) 02/05/23 13:30 Sodium 137 mmol/L (136-145) 02/05/23 13:30 Potassium 4.3 mmol/L (3.5-5.1) 02/05/23 13:30 Chloride 105 mmol/L (98-107) 02/05/23 13:30 Carbon Dioxide 23 mmol/L (22-29) 02/05/23 13:30 Anion Gap 13.3 (5-19) 02/05/23 13:30 BUN 33 mg/dL (8-23) H 02/05/23 13:30 Creatinine 0.9 mg/dL (0.5-0.9) 02/05/23 13:30 GFR Calculation Not Reportable 02/05/23 13:30 Glucose 127 mg/dL (65-115) H 02/05/23 13:30 Calculated Osmolality 293 mOsm/kg (285-295) 02/05/23 13:30 Calcium 9.6 mg/dL (8.5-10.5) 02/05/23 13:30 Total Bilirubin 0.3 mg/dL (0.15-1.2) 02/05/23 13:30 AST 16 U/L (0-32) 02/05/23 13:30 ALT 11 U/L (0-33) 02/05/23 13:30 Alkaline Phosphatase 22 U/L (35-105) L 02/05/23 13:30 Total Protein 6.2 g/dL (6.6-8.7) L 02/05/23 13:30 Albumin 3.8 g/dL (3.5-5.2) 02/05/23 13:30 Globulin 2.4 g/dL (1.3-4.6) 02/05/23 13:30 Blood Type A Positive 02/05/23 14:40 Rho(D) Type Positive 02/05/23 14:40 Antibody Screen Negative 02/05/23 14:40 Crossmatch See Detail 02/05/23 14:40 All radiology interpretation(s) finalized by discharge Discharge Plan Discharge Patient Disposition: Home Clinical Impression: Upper gastrointestinal hemorrhage, Transfusion of blood during current hospitalization Condition: Stable Prescriptions: No Action montelukast [Singulair] 10 mg tablet 10 mg PO BEDTIME fenofibrate 160 mg tablet 160 mg PO DAILY trazodone 50 mg tablet 100 mg PO BEDTIME budesonide-formoterol [Symbicort] 160-4.5 mcg/actuation HFA aerosol inhaler 2 puff INHALATION BID PRN (Reason: unknown) amlodipine 10 mg tablet 10 mg PO DAILY Qty: 90 3RF multivitamin Tablet 1 tab PO DAILY losartan 50 mg tablet 50 mg PO DAILY gabapentin 600 mg tablet 600 mg PO BID donepezil 10 mg tablet 10 mg PO BEDTIME loratadine [Claritin] 10 mg Tablet 10 mg PO QAM isosorbide mononitrate 30 mg tablet extended release 24 hr 30 mg PO DAILY Rx Instructions: MUST make follow-up for further refills atorvastatin 40 mg Tablet 40 mg PO BEDTIME Qty: 90 0RF Discharge Orders: Discharge ED (Routine); Ordered 02/05/23 Ordered By: Pascual Bass Referrals: Trent Caraballo MD [Primary Care Provider] - 7-10 days Patient Instructions: Gastrointestinal Bleeding (ED), Blood Transfusion (DC) Activity Restrictions/Additional Instructions: Please follow-up with your primary care doctor for further evaluation and treatment of your GI bleed. This may include but not limited to upper and lower endoscopy. Coding Level of Care Code ED Patient Accounting Representative for Kuldeep Baez
[2023-02-05] MEDS: diphenhydrAMINE 50 mg Capsule PO (17:54)
[2023-02-05] MEDS: dexamethasone 4 mg Tablet 10 MG PO (17:55)
== END 2023-02-05 21:56 | disposition home or self-care (01) ==
PROVIDERS: Emergency Provider Emergency Medicine; PCP Family Medicine
DX: K92.2 Gastrointestinal hemorrhage, unspecified (principal); Z87.891 Personal history of nicotine dependence; E78.5 Hyperlipidemia, unspecified; I10 Essential (primary) hypertension
CPT/HCPCS: 36415; 36430; 74177; 80053; 85025; 85610; 86850; 86900; 86920; 99285; J8540; P9040; Q0163; Q9967

== ENCOUNTER → 2023-04-30 13:58 | Outpatient (BNVA) | payer MEDICARE, SELFPAY | PROVIDERS: PCP Family Medicine; Visit Provider Nurse Practitioner Family | DX: L57.0 Actinic keratosis (principal); L91.8 Other hypertrophic disorders of the skin; L57.8 Other skin changes due to chronic exposure to nonionizing radiation; D22.4 Melanocytic nevi of scalp and neck; L81.4 Other melanin hyperpigmentation | CPT/HCPCS: 11200; 17000; 99213 ==

== ENCOUNTER → 2023-07-16 09:50 | Outpatient (BNVA) | payer MEDICARE, SELFPAY | PROVIDERS: PCP Family Medicine; Visit Provider Internal Medicine Cardiovascular Disease | DX: I35.0 Nonrheumatic aortic (valve) stenosis (principal); E78.5 Hyperlipidemia, unspecified; I11.0 Hypertensive heart disease with heart failure; I50.30 Unspecified diastolic (congestive) heart failure; Z87.891 Personal history of nicotine dependence | CPT/HCPCS: 99214 ==

== ENCOUNTER → 2024-01-29 10:46 | Outpatient (BNVA) | payer MEDICARE, SELFPAY | PROVIDERS: PCP Family Medicine; Visit Provider Nurse Practitioner Family | DX: I11.0 Hypertensive heart disease with heart failure (principal); I50.30 Unspecified diastolic (congestive) heart failure; I35.0 Nonrheumatic aortic (valve) stenosis; Z87.891 Personal history of nicotine dependence | CPT/HCPCS: 99214 ==

== ENCOUNTER 2024-02-03 08:15 | Outpatient (CLI) | payer MEDICARE, SELFPAY ==
--- NOTE | 2024-02-03 08:21 | USCV_ITS ---
Kylie Kumar Age: 83 Gender: F : 1940 Exam Date: 02/03/2024 08:32 Ordering Phys: Trent Caraballo MD Technologist: CT Exam Location: [facility] [place] Indication: murmur BP: 124 / 80 HR: 54 Rhythm: Sinus Technical Quality: Adequate MEASUREMENTS (Male / Female) Normal Values 2D ECHO LVOT Diameter 2.1 cm LV Ejection Fraction MOD 4C 65.2 % LV Ejection Fraction MOD 2C 69.9 % LV Ejection Fraction 2C AL 69.6 % LA Diameter 4.0 cm RA Systolic Volume 4C AL 63.8 ml RA Systolic Volume 4C MOD 66.0 ml LA Sys Volume AL 71.8 cm cubed LA Sys Volume Index AL 37.6 cm cubed/m squared Aorta at Sinotubular Diameter 2.0 cm IVC Diameter 2.1 cm M-MODE LA Ao Ratio MM 1.6 AV Cusp Separation MM 1.1 cm DOPPLER AV Peak Velocity 379.0 cm/s LVOT Peak Velocity 136.0 cm/s AV Area Cont Eq vti 1.2 cm squared AV Area Cont Eq pk 1.2 cm squared MV Peak Velocity 126.0 cm/s MV Area PHT 2.3 cm squared Mitral E to A Ratio 0.9 TV Peak Velocity 316.0 cm/s TR Peak Velocity 321.0 cm/s TR Peak Gradient 41.2 mmHg TV Peak E Velocity 81.0 cm/s Right Atrial Pressure 3.0 mmHg Pulmonary Artery Systolic Pressu 44.2 mmHg PV Peak Velocity 172.5 cm/s FINDINGS Left Ventricle Mild left ventricular hypertrophy. Normal LV systolic function. Estimated LVEF normal 65%. Right Ventricle Normal right ventricular size and systolic function. Right Atrium Normal right atrial size. Left Atrium Mildly increased left atrial size. Mitral Valve Thickened mitral valve. No mitral valve stenosis. Trace mitral valve regurgitation. Aortic Valve Thickened calcified aortic valve. There is an overall moderate aortic stenosis (peak gradient 57 mmHg, mean gradient 31 mmHg, AV max velocity 3.7 m/s, calculated aortic valve area 1.2 cm squared). Tricuspid Valve Thickened tricuspid valve. Mild tricuspid valve regurgitation. Elevated RV and pulmonary artery systolic pressure (PAP pressure 44 mmHg). Pulmonic Valve Structurally normal pulmonic valve. Trace pulmonary valve regurgitation. Pericardium No pericardial effusion. Aorta Normal size aortic root and proximal ascending aorta. IVC Upper normal size (2 cm) with blunt respiratory responsive. CONCLUSIONS 1. Mild left ventricle hypertrophy. Normal LV systolic function with. LVEF 65%. 2. Thickened calcified aortic valve with moderate aortic stenosis (peak gradient 57 mmHg, mean gradient 31 mmHg, AV max velocity 3.7 m/s, calculated aortic valve area 1.2 cm squared). 3. Moderately elevated RV and pulmonary pressure (pulmonary systolic pressure 44 mmHg). No previous echo for comparison. Richard Crespo MD (Electronically Signed) Final Date: 04 February 2024 14:05 S
== END 2024-02-03 08:16 | disposition home or self-care (01) ==
LOC: RAD 08:16
PROVIDERS: PCP Family Medicine; Visit Provider Family Medicine
DX: R01.1 Cardiac murmur, unspecified (principal); I51.7 Cardiomegaly; I05.9 Rheumatic mitral valve disease, unspecified; I70.0 Atherosclerosis of aorta; I35.0 Nonrheumatic aortic (valve) stenosis; I07.1 Rheumatic tricuspid insufficiency; I36.8 Other nonrheumatic tricuspid valve disorders
CPT/HCPCS: 93306

== ENCOUNTER → 2024-07-01 11:11 | Outpatient (BNVA) | payer MEDICARE, SELFPAY | PROVIDERS: PCP Family Medicine; Visit Provider Nurse Practitioner Family | DX: L30.8 Other specified dermatitis (principal); L82.1 Other seborrheic keratosis; D22.4 Melanocytic nevi of scalp and neck; L57.8 Other skin changes due to chronic exposure to nonionizing radiation; L81.4 Other melanin hyperpigmentation; Z08 Encounter for follow-up examination after completed treatment for malignant neoplasm; Z85.828 Personal history of other malignant neoplasm of skin; L57.0 Actinic keratosis | CPT/HCPCS: 17000; 99214 ==

== ENCOUNTER 2024-09-22 08:37 | Outpatient (CLI) | payer MEDICARE, SELFPAY ==
--- NOTE | 2024-09-22 08:42 | US_ITS ---
WS: [id number] Complete ABDOMINAL ULTRASOUND HISTORY: abdominal pain COMPARISON: None available. Liver: 17.2 cm in length. Normal size liver and echogenicity. No bile duct dilatation or mass. Lobulated hepatic cyst in the LEFT lobe with a thin septation measures 2.3 x 2.8 x 2.0 cm. Very similar in appearance to the CT from 02/05/2023. Multiple small cysts are identified within the liver. No solid mass. Portal Vein: Normal hepatopetal flow with monophasic waveform. Gallbladder: Normally distended gallbladder with no stones or wall thickening. CBD: 0.4 cm Pancreas: Normal size and echogenicity. Right kidney: 9.9 cm x 4.9 x 5.9 cm. Cortex:1.0 cm. Normal size and echogenicity. No hydronephrosis or mass. Left kidney: 9.9 cm x 5.1 cm x 5.2 cm. Cortex: 1.1 cm. Normal size and echogenicity. No hydronephrosis or mass. Exophytic LEFT renal cyst from the mid kidney measures 1.9 x 2.1 x 2.0 cm. Stable since 02/05/2023. Spleen: 13.4 cm. Normal size and echogenicity. Aorta and IVC: Atherosclerotic plaque. No aneurysm. US/US abdomen complete* [id number] Impression: 1. Negative gallbladder. 2. Several simple hepatic cysts are stable since the prior CT from 2022. 3. Stable LEFT renal cyst, 2.1 cm. 4. No renal obstruction.
== END 2024-09-22 08:38 | disposition home or self-care (01) ==
LOC: RAD 08:39
PROVIDERS: PCP Family Medicine; Visit Provider Internal Medicine Medical Oncology
DX: I11.0 Hypertensive heart disease with heart failure (principal); I50.30 Unspecified diastolic (congestive) heart failure; I35.0 Nonrheumatic aortic (valve) stenosis; E78.5 Hyperlipidemia, unspecified; Z87.891 Personal history of nicotine dependence; R06.09 Other forms of dyspnea
CPT/HCPCS: 76700; 99214

== ENCOUNTER 2024-09-24 09:30 | Oncology outpatient (recurring) (ONCR) | payer MEDICARE, SELFPAY ==
[2024-09-14 16:15] LABS: Basophils % 0.9 %; Eosinophils # 0.1 10^3/uL (0.0-0.8); Eosinophils % 1.2 %; Lymphocytes # 1.2 10^3/uL (0.8-4.8); Lymphocytes % 28.8 %; Mean Corpuscular HGB Conc 28.1 g/dL (30-55); Mean Corpuscular Volume 74.9 fl (85-98); Monocytes # 0.3 10^3/uL (0.2-0.9); Monocytes % 7.1 %; Neutrophils # 2.62 10^3/uL (1.8-7.7); Neutrophils % 61.8 %; Nucleated Red Blood Cells % 0 %; Platelet Count 130 10^3/cmm (157-399); Red Blood Count 4.14 10^6/uL (3.85-5.65); Red Cell Distribution Width 15.8 % (12.1-15.1); White Blood Count 4.24 10^3/uL (3.29-11.43)
[2024-09-14 16:49] LABS: Alanine Aminotransferase 12 U/L (0-33); Albumin Level 4.1 g/dL (3.5-5.2); Alkaline Phosphatase 27 U/L (35-105); Anion Gap 16.5 (5-19); Aspartate Amino Transferase 19 U/L (0-32); Blood Urea Nitrogen 19 mg/dL (8-23); Calcium 9.6 mg/dL (8.5-10.5); Carbon Dioxide 24 mmol/L (22-29); Chloride 108 mmol/L (98-107); Ferritin 8 ng/mL (15-150); Globulin 2.8 g/dL (1.3-4.6); Glucose 82 mg/dL (65-115); Iron 21 ug/dL (37-145); Osmolality Calculated 299 mOsm/kg (285-295); Percent Saturation 4.2 % (20-50); Potassium 4.5 mmol/L (3.5-5.1); Sodium 144 mmol/L (136-145); Total Bilirubin 0.3 mg/dL (0.15-1.2); Total Iron Binding Capacity 496 mcg/dl; Total Protein 6.9 g/dL (6.6-8.7); Unsaturated Iron Binding 475 ug/dL (112-347)
[2024-09-14 17:02] LABS: Vitamin B12 549 pg/mL (232-1245)
[2024-09-14 17:03] LABS: Folate Level 16.7 ng/mL (4.8-37.3)
[2024-09-24] MEDS: sodium chloride 0.9% 500 ML 75 ML IV (09:05)
[2024-09-24] MEDS: acetaminophen 325 mg Tablet 650 MG PO (09:09)
[2024-09-24] MEDS: diphenhydrAMINE 50 mg/mL SDV 1mL 25 MG IVP (09:10)
[2024-09-24] MEDS: iron dextran 25 MG in SYRINGE 1 EACH 30 MG IVP (10:03)
[2024-09-24] MEDS: iron dextran 1,000 MG in sodium chloride 0.9% 1,000 ML 250.75 MG IV (11:33)
== END 2024-10-05 23:59 | disposition home or self-care (01) ==
PROVIDERS: PCP Family Medicine; Visit Provider Internal Medicine Medical Oncology
DX: D50.9 Iron deficiency anemia, unspecified (principal); Z79.899 Other long term (current) drug therapy; Z53.9 Procedure and treatment not carried out, unspecified reason
CPT/HCPCS: 36415; 80053; 82607; 82728; 82746; 83540; 83550; 85025; 96365; 96366; 96375; 99205; J1200; J1750; J7030; J7040; J9999

== ENCOUNTER 2024-10-19 12:54 | Oncology outpatient (recurring) (ONCR) | payer MEDICARE, SELFPAY ==
[2024-10-19 14:10] LABS: Hematocrit 35.7 % (36-47); Hemoglobin 10.80 g/dL (11.27-16.99); Mean Corpuscular HGB Conc 30.3 g/dL (30-55); Mean Corpuscular Hemoglobin 23.4 pg (27-33); Mean Corpuscular Volume 77.4 fl (85-98); Nucleated Red Blood Cells % 0 %; Platelet Count 127 10^3/cmm (157-399); Red Blood Count 4.61 10^6/uL (3.85-5.65); White Blood Count 3.91 10^3/uL (3.29-11.43)
[2024-10-19 14:30] LABS: Alanine Aminotransferase 17 U/L (0-33); Albumin Level 4.0 g/dL (3.5-5.2); Alkaline Phosphatase 27 U/L (35-105); Anion Gap 14.2 (5-19); Aspartate Amino Transferase 22 U/L (0-32); Blood Urea Nitrogen 22 mg/dL (8-23); Calcium 10.2 mg/dL (8.5-10.5); Carbon Dioxide 28 mmol/L (22-29); Chloride 106 mmol/L (98-107); Creatinine Clr Calc Pharmacy 50.0734; Globulin 2.7 g/dL (1.3-4.6); Glucose 106 mg/dL (65-115); Iron 52 ug/dL (37-145); Osmolality Calculated 302 mOsm/kg (285-295); Potassium 4.2 mmol/L (3.5-5.1); Sodium 144 mmol/L (136-145); Total Iron Binding Capacity 330 mcg/dl; Total Protein 6.7 g/dL (6.6-8.7); Unsaturated Iron Binding 278 ug/dL (112-347)
== END 2024-11-05 23:59 | disposition home or self-care (01) ==
PROVIDERS: PCP Family Medicine; Visit Provider Internal Medicine Medical Oncology
DX: D64.9 Anemia, unspecified (principal); D50.9 Iron deficiency anemia, unspecified; D69.6 Thrombocytopenia, unspecified; D70.9 Neutropenia, unspecified; Z87.891 Personal history of nicotine dependence
CPT/HCPCS: 36415; 80053; 83540; 83550; 85025; 99213

== ENCOUNTER → 2024-10-26 11:25 | Outpatient (BNVA) | payer MEDICARE, SELFPAY | PROVIDERS: PCP Family Medicine; Referring Provider Internal Medicine Medical Oncology; Visit Provider Student in an Organized Health Care Education/Training Program | DX: D64.9 Anemia, unspecified (principal) | CPT/HCPCS: 99204 ==

== ENCOUNTER 2024-11-10 09:22 | Day surgery (SDC) | payer MEDICARE, SELFPAY ==
[2024-11-10 09:44] VITALS: BP 177/72; PULSE 66; RESP 18; TEMP 36.1; O2SAT 95; BMI 27.3
--- NOTE | 2024-11-10 10:39 | ANES.PREANE2 ---
Pre-Anesthetic Assessment Height/Weight: Height 1.7 m Weight 79.379 kg Temp Pulse Resp BP Pulse Ox O2 Del Method 97.0 F L 66 18 177/72 95 Room Air 11/10/24 09:44 11/10/24 09:44 11/10/24 09:44 11/10/24 09:44 11/10/24 09:44 11/10/24 09:44 Operation Date: 11/10/24 10:45 Proposed Procedures p EGD EGD with Biopsy [id number] G0105 D64.9(Not Applicable) - Deondre Ye MD s Colonoscopy(Not Applicable) - Deondre Ye MD Familial anesthetic complications: none Was Beta Aaron taken within 24 hours: N/A Was Clonidine taken within 24 hours: N/A Last intake: Intake Last Liquid Date 11/09/24 Last Liquid Time 15:00 Last Solid Date 11/08/24 Last Solid Time 18:00 Social No alcohol and No tobacco Exam alert and oriented x 3 (forgettful) Airway Submandibular: within normal limits Cervical ROM: within normal limits Mallampati: Class I Dentition: false Pulmonary Chronic Obstructive Pulmonary Disease CV/HEM Congestive Heart Failure and Murmur None reported Hepatic None reported GI None reported Metabolic None reported Musc/skel Lower Back Pain and Weakness (refuses to use walker per family member) Neuropsych Transient Ischemic Attack Anesthetic Plan ASA status: 3 Anesthesia: Anesthesia Evaluation and MAC Risk of > 500 ml blood loss (7ml/kg in children): No Medications/Allergies Home Medications ?Medication ?Instructions ?Recorded ?Confirmed ?Last Taken ?Type montelukast 10 mg tablet 10 mg PO BEDTIME 07/08/19 11/05/24 11/04/24 History (Singulair) budesonide-formoterol HFA 160 2 puff inhalation BID PRN unknown 11/11/19 11/10/24 11/08/24 History mcg-4.5 mcg/actuation aerosol inhaler (Symbicort) atorvastatin 40 mg tablet 40 mg PO BEDTIME #90 tabs 10/12/22 11/05/24 11/08/24 Rx gabapentin 600 mg tablet 600 mg PO BEDTIME 10/12/22 11/05/24 11/04/24 History multivitamin 1 tab PO DAILY 10/12/22 11/05/24 11/05/24 History amlodipine 5 mg tablet 5 mg PO DAILY #90 tabs 01/29/24 11/05/24 11/08/24 Rx trazodone 50 mg tablet 100 mg PO BEDTIME PRN Sleep 09/14/24 11/05/24 11/08/24 History Allergies Allergy/AdvReac Type Severity Reaction Status Date / Time amoxicillin Allergy Severe Diarrhea Verified 11/10/24 09:43 Current Medications Generic Name Dose Route Start Last Admin Trade Name Freq PRN Reason Stop Dose Admin Sodium Chloride 1,000 mls @ 15 mls/hr 11/10/24 09:28 11/10/24 09:52 Sodium Chloride 0.9% IV 11/11/24 09:27 15 mls/hr .Q24H PRN Administration COLONOSCOPY FLUIDS PFSH Anesthesia Medical History Palpitations Aortic stenosis Hyperlipidemia LDL goal <130 Hypertension Displacement of lumbar disc with radiculopathy Stenosis, spinal, lumbar Surgical History History of lumbar fusion Family History Mother Stroke Denies family history of Diabetes CAD (coronary artery disease) Clotting disorder Dementia Chronic kidney disease (CKD) Suicide Anesthesia complication Bleeding disorder Lung disease Cancer Social History Smoking and tobacco/nicotine status: former use of tobacco/nicotine Alcohol intake: never Substance/Drug Use: never Lives independently: Yes Marital status: / Current occupational status: retired Data Anesthesia Cardiac Studies: Echocardiogram 02/03/24 Echocardiogram Ultrasound 09/01/20 Cardiac Event Monitor 12/05/22
--- NOTE | 2024-11-10 10:50 | W.PM.OPSUD ---
Surgery/Procedure H&P Update DATE OF PROCEDURE: November 10, 2024 DATE H&P PERFORMED: 10/26/24 H&P UPDATE INFORMATION: I have reviewed H&P completed within last 30 days, I have examined patient prior to procedure and No changes to prior documentation PLANNED PROCEDURE: Operation Date: 11/10/24 10:45 Proposed Procedures p EGD EGD with Biopsy [id number] G0105 D64.9(Not Applicable) - Deondre Ye MD s Colonoscopy(Not Applicable) - Deondre Ye MD
[2024-11-10 11:26] VITALS: BP 124/60; PULSE 70; RESP 18; TEMP 36.2; O2SAT 92
[2024-11-10 11:46] VITALS: BP 145/72; PULSE 71; RESP 18; O2SAT 96
--- NOTE | 2024-11-10 11:57 | ANE.PACU2 ---
Inpatient post-anesthesia follow up: Airway intact: Yes Vital signs: Temperature 97.2 F Pulse Rate 71 Respiratory Rate 18 Blood Pressure 145/72 Pulse Oximetry 96 Oxygen Delivery Me thod Room Air Oxygen Flow Rate Fraction of Inspir ed Oxygen Hydration adequate: Yes Nausea and vomiting: No Pain level: 1 Mental status: Baseline
--- NOTE | 2024-11-10 11:58 | SUR.OPER ---
Cecum at 1109. 8 min withdrawal time.
== END 2024-11-10 12:20 | disposition home or self-care (01) ==
PROVIDERS: PCP Family Medicine; Visit Provider Student in an Organized Health Care Education/Training Program
PROC: 0DJ08ZZ Inspection of Upper Intestinal Tract, Via Natural or Artificial Opening Endoscopic (ICD-10-PCS; principal; 2024-11-10 10:45)
PROC: 0DJD8ZZ Inspection of Lower Intestinal Tract, Via Natural or Artificial Opening Endoscopic (ICD-10-PCS; CPT 45378; 2024-11-10 10:45)
DX: K57.31 Diverticulosis of large intestine without perforation or abscess with bleeding (principal); K52.9 Noninfective gastroenteritis and colitis, unspecified; K31.A11 Gastric intestinal metaplasia without dysplasia, involving the antrum; D50.9 Iron deficiency anemia, unspecified; D12.5 Benign neoplasm of sigmoid colon; J44.9 Chronic obstructive pulmonary disease, unspecified; I11.0 Hypertensive heart disease with heart failure; I50.9 Heart failure, unspecified; E78.5 Hyperlipidemia, unspecified; K29.50 Unspecified chronic gastritis without bleeding; Z86.73 Personal history of transient ischemic attack (TIA), and cerebral infarction without residual deficits; Z98.1 Arthrodesis status; Z88.0 Allergy status to penicillin; Z79.899 Other long term (current) drug therapy; Z87.891 Personal history of nicotine dependence
CPT/HCPCS: 43239; 45380; 45385; 88305; 88342; J2704; J7030

== ENCOUNTER 2024-11-16 12:21 | Oncology outpatient (recurring) (ONCR) | payer MEDICARE, SELFPAY | END 2024-12-06 23:59 | disposition home or self-care (01) | PROVIDERS: PCP Family Medicine; Visit Provider Internal Medicine Medical Oncology | DX: D50.9 Iron deficiency anemia, unspecified (principal); D69.6 Thrombocytopenia, unspecified; D70.9 Neutropenia, unspecified; Z87.891 Personal history of nicotine dependence; Z79.899 Other long term (current) drug therapy | CPT/HCPCS: 99213 ==

== ENCOUNTER → 2024-11-23 12:45 | Outpatient (BNVA) | payer MEDICARE, SELFPAY | PROVIDERS: PCP Family Medicine; Visit Provider Student in an Organized Health Care Education/Training Program | DX: Z09 Encounter for follow-up examination after completed treatment for conditions other than malignant neoplasm (principal) | CPT/HCPCS: 99213 ==

== ENCOUNTER 2024-12-28 11:09 | Oncology outpatient (recurring) (ONCR) | payer MEDICARE, SELFPAY ==
[2024-12-28 11:41] LABS: Hematocrit 33.9 % (36-47); Hemoglobin 10.70 g/dL (11.27-16.99); Mean Corpuscular HGB Conc 31.6 g/dL (30-55); Mean Corpuscular Hemoglobin 26.7 pg (27-33); Mean Corpuscular Volume 84.5 fl (85-98); Nucleated Red Blood Cells % 0 %; Platelet Count 106 10^3/cmm (157-399); Red Blood Count 4.01 10^6/uL (3.85-5.65); White Blood Count 3.79 10^3/uL (3.29-11.43)
[2024-12-28 12:01] LABS: Alanine Aminotransferase 15 U/L (0-33); Albumin Level 4.0 g/dL (3.5-5.2); Alkaline Phosphatase 30 U/L (35-105); Anion Gap 12.9 (5-19); Aspartate Amino Transferase 18 U/L (0-32); Blood Urea Nitrogen 14 mg/dL (8-23); Calcium 9.8 mg/dL (8.5-10.5); Carbon Dioxide 24 mmol/L (22-29); Chloride 108 mmol/L (98-107); Creatinine Clr Calc Pharmacy 56.5293; Ferritin 25 ng/mL (15-150); Globulin 2.5 g/dL (1.3-4.6); Glucose 122 mg/dL (65-115); Iron 39 ug/dL (37-145); Osmolality Calculated 294 mOsm/kg (285-295); Potassium 3.9 mmol/L (3.5-5.1); Sodium 141 mmol/L (136-145); Total Iron Binding Capacity 324 mcg/dl; Total Protein 6.5 g/dL (6.6-8.7); Unsaturated Iron Binding 285 ug/dL (112-347)
[2024-12-28 12:17] LABS: Vitamin B12 533 pg/mL (232-1245)
== END 2025-01-05 23:59 | disposition home or self-care (01) ==
PROVIDERS: PCP Family Medicine; Visit Provider Internal Medicine Medical Oncology
DX: D50.9 Iron deficiency anemia, unspecified (principal); D69.6 Thrombocytopenia, unspecified; D70.9 Neutropenia, unspecified; D64.9 Anemia, unspecified; Z87.891 Personal history of nicotine dependence; Z79.899 Other long term (current) drug therapy
CPT/HCPCS: 36415; 80053; 82607; 82728; 82746; 83540; 83550; 85025; 99214

== ENCOUNTER 2025-01-21 08:48 | Outpatient (CLI) | payer MEDICARE, SELFPAY ==
--- NOTE | 2025-01-21 12:00 | USCV_ITS ---
Kylie Kumar Age: 84 Gender: F : 1940 Exam Date: 01/21/2025 12:03 Ordering Phys: Jt Araujo MD ([email or web address]) Technologist: SRIDHAR Exam Location: [facility] – [place] Indication: BP: 148 / 59 HR: 59 Rhythm: Sinus Technical Quality: Adequate MEASUREMENTS (Male / Female) Normal Values 2D ECHO LV Diastolic Diameter PLAX 4.1 cm 4.2 - 5.9 / 3.9 - 5.3 cm IVS Diastolic Thickness 1.9 cm 0.6 - 1.0 / 0.6 - 0.9 cm IVS Systolic Thickness 2.2 cm LVPW Diastolic Thickness 1.4 cm 0.6 - 1.0 / 0.6 - 0.9 cm LVPW Systolic Thickness 2.0 cm LVOT Diameter 2.0 cm LV Ejection Fraction 2D Teich 57.3 % LV Ejection Fraction MOD 4C 65.4 % LV Ejection Fraction MOD 2C 57.8 % LV Ejection Fraction 2C AL 56.9 % LA Diameter 3.6 cm RA Systolic Volume 4C AL 32.1 ml RA Systolic Volume 4C MOD 32.5 ml LA Sys Volume AL 40.2 cm cubed LA Sys Volume Index AL 20.7 cm cubed/m squared Aorta at Sinotubular Diameter 1.9 cm IVC Diameter 1.9 cm M-MODE LA Ao Ratio MM 1.8 AV Cusp Separation MM 0.9 cm DOPPLER AV Peak Velocity 434.3 cm/s LVOT Peak Velocity 118.0 cm/s AV Area Cont Eq vti 1.0 cm squared AV Area Cont Eq pk 0.8 cm squared MV Peak Velocity 126.0 cm/s MV Area PHT 3.1 cm squared Mitral E to A Ratio 0.6 TV Peak Velocity 243.0 cm/s TR Peak Velocity 305.0 cm/s TR Peak Gradient 37.2 mmHg TV Peak E Velocity 66.0 cm/s PV Peak Velocity 180.0 cm/s FINDINGS Left Ventricle Normal left ventricular size, systolic function and wall thickness, with no regional wall motion abnormalities. Left ventricular ejection fraction is estimated at 60 %. Grade I/IV diastolic dysfunction (abnormal relaxation filling pattern), normal to mildly elevated filling pressures. Right Ventricle Normal right ventricular size and systolic function. Right Atrium Normal right atrial size. Left Atrium Normal left atrial size. IA Septum Normal appearance of the interatrial septum. Mitral Valve Moderately thickened mitral valve. No mitral valve stenosis. Mild to moderate mitral valve regurgitation. Aortic Valve Severe aortic valve calcification. Severe aortic valve stenosis, mean gradient 44.5 mmHg, [place] 0.97 cm squared. Trace aortic valve regurgitation. Tricuspid Valve Normal tricuspid valve structure. No tricuspid valve stenosis or regurgitation. Normal pulmonary pressure. Pulmonic Valve Normal pulmonic valve structure. No pulmonic valve stenosis or regurgitation. Pericardium No pericardial effusion. Aorta Normal diameter of the aortic root and ascending thoracic aorta. IVC Normal IVC diameter. CONCLUSIONS Normal left ventricular size, systolic function and wall thickness, with no regional wall motion abnormalities. Left ventricular ejection fraction is estimated at 60 %. Grade I/IV diastolic dysfunction (abnormal relaxation filling pattern), normal to mildly elevated filling pressures. Severe aortic valve calcification. Severe aortic valve stenosis, mean gradient 44.5 mmHg, [place] 0.97 cm squared. Trace aortic valve regurgitation. Moderately thickened mitral valve. No mitral valve stenosis. Mild to moderate mitral valve regurgitation. There is no pericardial effusion. Right atrial pressure is around 5 mm of mercury. Devorah Knowles MD (Electronically Signed) Final Date: 31 January 2025 01:34 S
== END 2025-01-21 08:49 | disposition home or self-care (01) ==
LOC: RAD 08:53
PROVIDERS: PCP Family Medicine; Visit Provider Internal Medicine Cardiovascular Disease
DX: R06.09 Other forms of dyspnea (principal); I51.89 Other ill-defined heart diseases; I35.8 Other nonrheumatic aortic valve disorders; I35.0 Nonrheumatic aortic (valve) stenosis; I35.1 Nonrheumatic aortic (valve) insufficiency; I34.9 Nonrheumatic mitral valve disorder, unspecified; I34.0 Nonrheumatic mitral (valve) insufficiency
CPT/HCPCS: 93306

== ENCOUNTER 2025-02-02 08:44 | Oncology outpatient (recurring) (ONCR) | payer MEDICARE, SELFPAY ==
[2025-02-02 09:22] VITALS: BP 145/65; PULSE 62; TEMP 36.1; O2SAT 96
[2025-02-02] MEDS: diphenhydrAMINE 50 mg/mL SDV 1mL 25 MG IVP (10:32)
[2025-02-02 10:37] LABS: Hematocrit 35.5 % (36-47); Hemoglobin 11.40 g/dL (11.27-16.99); Mean Corpuscular HGB Conc 32.1 g/dL (30-55); Mean Corpuscular Hemoglobin 27.0 pg (27-33); Mean Corpuscular Volume 84.1 fl (85-98); Nucleated Red Blood Cells % 0 %; Platelet Count 106 10^3/cmm (157-399); Red Blood Count 4.22 10^6/uL (3.85-5.65); White Blood Count 4.39 10^3/uL (3.29-11.43)
[2025-02-02 10:54] LABS: Alanine Aminotransferase 14 U/L (0-33); Albumin Level 4.0 g/dL (3.5-5.2); Blood Urea Nitrogen 16 mg/dL (8-23); Calcium 9.7 mg/dL (8.5-10.5); Carbon Dioxide 23 mmol/L (22-29); Chloride 106 mmol/L (98-107); Globulin 2.7 g/dL (1.3-4.6); Glucose 80 mg/dL (65-115); Osmolality Calculated 292 mOsm/kg (285-295); Sodium 141 mmol/L (136-145); Total Protein 6.7 g/dL (6.6-8.7)
[2025-02-02] MEDS: iron dextran 1,000 MG in sodium chloride 0.9% 1,000 ML 250.75 MG IV (11:57)
[2025-02-02 11:58] LABS: Anion Gap 16.4 (5-19); Aspartate Amino Transferase 23 U/L (0-32); Potassium 4.4 mmol/L (3.5-5.1)
[2025-02-02 11:59] LABS: Alkaline Phosphatase 32 U/L (35-105)
[2025-02-02 16:00] VITALS: BP 149/74; PULSE 54; TEMP 36.4
== END 2025-02-05 23:59 | disposition home or self-care (01) ==
LOC: ONCMED 08:44
PROVIDERS: Nurse Practitioner Family; PCP Family Medicine; Visit Provider Internal Medicine Medical Oncology
DX: D50.9 Iron deficiency anemia, unspecified (principal); D69.6 Thrombocytopenia, unspecified; D70.9 Neutropenia, unspecified; D64.9 Anemia, unspecified; Z87.891 Personal history of nicotine dependence; Z79.899 Other long term (current) drug therapy
CPT/HCPCS: 80053; 85025; 96365; 96366; 96375; J1200; J1750; J7030; J7040; J9999

== ENCOUNTER → 2025-02-11 14:43 | Outpatient (BNVA) | payer MEDICARE, SELFPAY | PROVIDERS: PCP Family Medicine; Visit Provider Internal Medicine Cardiovascular Disease | DX: I35.0 Nonrheumatic aortic (valve) stenosis (principal); I11.0 Hypertensive heart disease with heart failure; I50.30 Unspecified diastolic (congestive) heart failure; E78.5 Hyperlipidemia, unspecified; Z87.891 Personal history of nicotine dependence; R06.02 Shortness of breath; R07.9 Chest pain, unspecified; Z79.01 Long term (current) use of anticoagulants; I48.91 Unspecified atrial fibrillation; I25.118 Atherosclerotic heart disease of native coronary artery with other forms of angina pectoris; I31.9 Disease of pericardium, unspecified | CPT/HCPCS: 93005; 99214 ==

== ENCOUNTER 2025-02-22 10:37 | Oncology outpatient (recurring) (ONCR) | payer MEDICARE, SELFPAY ==
[2025-02-22 11:04] LABS: Hematocrit 39.0 % (36-47); Hemoglobin 12.50 g/dL (11.27-16.99); Mean Corpuscular HGB Conc 32.1 g/dL (30-55); Mean Corpuscular Hemoglobin 27.4 pg (27-33); Mean Corpuscular Volume 85.5 fl (85-98); Nucleated Red Blood Cells % 0 %; Platelet Count 115 10^3/cmm (157-399); Red Blood Count 4.56 10^6/uL (3.85-5.65); White Blood Count 4.36 10^3/uL (3.29-11.43)
[2025-02-22 11:19] LABS: Alanine Aminotransferase 17 U/L (0-33); Albumin Level 4.3 g/dL (3.5-5.2); Alkaline Phosphatase 32 U/L (35-105); Anion Gap 12.1 (5-19); Aspartate Amino Transferase 19 U/L (0-32); Blood Urea Nitrogen 21 mg/dL (8-23); Calcium 10.4 mg/dL (8.5-10.5); Carbon Dioxide 27 mmol/L (22-29); Chloride 106 mmol/L (98-107); Globulin 2.9 g/dL (1.3-4.6); Glucose 66 mg/dL (65-115); Osmolality Calculated 293 mOsm/kg (285-295); Potassium 4.1 mmol/L (3.5-5.1); Sodium 141 mmol/L (136-145); Total Protein 7.2 g/dL (6.6-8.7)
[2025-02-22 11:37] LABS: Ferritin 390 ng/mL (15-150); Iron 88 ug/dL (37-145); Total Iron Binding Capacity 335 mcg/dl; Unsaturated Iron Binding 247 ug/dL (112-347)
== END 2025-03-07 23:59 | disposition home or self-care (01) ==
PROVIDERS: Nurse Practitioner Family; PCP Family Medicine; Visit Provider Internal Medicine Medical Oncology
DX: D69.6 Thrombocytopenia, unspecified (principal); D70.9 Neutropenia, unspecified; R05.9 Cough, unspecified; R51.9 Headache, unspecified; Z79.899 Other long term (current) drug therapy; Z53.9 Procedure and treatment not carried out, unspecified reason
CPT/HCPCS: 36415; 80053; 82728; 83540; 83550; 85025; 99214

== ENCOUNTER 2025-02-23 07:05 | Outpatient (CLI) | payer MEDICARE, SELFPAY ==
[2025-02-23] VITALS (18 sets, daily range): BP systolic 113–177; BP diastolic 49–90; PULSE 50–71; RESP 14–21; TEMP 36.4; O2SAT 90–98; BMI 27.1
--- NOTE | 2025-02-23 07:30 | XACV_ITS ---
Ht: 170 cm Wt: 78 kg BSA: 1.94 m2 Gender: Female : 1940 Any Known Allergies: Penicillins Exam Priority: Routine Procedure(s): Procedure Description: Diagnostic procedure Procedure Description: Right Heart Catheterization Procedure Description: Coronary Angiography Van MOREIRA; Diagnostic Cath Status: Elective Diagnostic Findings * Left main is a medium to large caliber vessel with no significant stenotic lesions. Diffuse ectasia was noted at the distal bifurcation. * The left anterior descending artery is a medium caliber vessel which appears to wraparound the LV apex. The ostium of the artery was found to be ectatic. The first diagonal branch has a high takeoff. Minimal intimal irregularities were noted in the proximal segment of the artery. 30% segmental narrowing was noted at the distal LAD. * The left circumflex artery is a medium to large caliber dominant vessel with minimal intimal irregularities. * The right coronary artery is a small to medium caliber nondominant vessel with mild diffuse luminal irregularities. No significant stenotic lesions were noted. * Mild to moderate calcification was noted in the proximal segment of the left coronary arteries. Conclusions 1. 84-year-old white female with progressive shortness of breath and features of diastolic heart failure. Severe aortic valve stenosis by echocardiogram. For further evaluation of her coronary status as well as the hemodynamics, and right and left heart catheterization was recommended. Patient underwent left and right heart catheterization with coronary angiogram today. The findings are as follows. 2. Mild to moderate calcification in the distal left main and proximal segments of the left anterior descending and circumflex arteries. Moderate to large caliber left main and left circumflex arteries. Medium caliber left anterior descending artery which wrap around the LV apex. Small to medium caliber nondominant right coronary artery. Mild diffuse plaque in the coronary arteries. Right heart catheterization revealing a mean PA pressure of 30 mmHg. Pulmonary capillary wedge pressure of 18 and a mean right atrial pressure of 11. Cardiac output by Gorge's was 4.0 with an index of 2. Diagnostic RX Recommendation: other cardiac therapy w/o CABG/PCI Left Ventriculography Findings: * LV gram was not performed because of the heavy calcification at the aortic valve. Pressures Phase:Rest AO : 116 / 51 ( 72 ) @ 9:01:00 AM 96 / 56 ( 73 ) @ 9:04:00 AM RV : 50 / 0 / 13 @ 8:52:00 AM PA : 5 / 0 ( 2 ) @ 8:49:00 AM 50 / 17 ( 30 ) @ 8:51:00 AM RA : a wave = 14 v wave = 13 mean = 11 @ 8:53:00 AM PCW : a wave = 23 v wave = 25 mean = 18 @ 8:51:00 AM a wave = 24 v wave = 25 mean = 20 @ 8:52:00 AM Hemodynamic Findings The main right atrial pressure was 11 mmHg. RV pressure was 50/0. The PA pressure was 50/70 with a mean of 30. Pulmonary capillary wedge pressure was 18. Cardiac output by Gorge's was 4.0 and the index was 2. O2 Content Phase:Rest PA : O2 Content O2: 62.8 @ 8:49:00 AM Saturations Phase:Rest AO : 90 @ 9:01:00 AM RV : 60 @ 9:04:00 AM PA : 63 @ 8:49:00 AM PCW : 61 @ 8:51:00 AM Cardiac Output Phase:Rest Gorge : 4 @ 9:27:52 AM Gorge Cardiac Index: 2 @ 9:27:52 AM Flow Phase:Rest Qp : 4 @ 9:27:52 AM Qs : 3 @ 9:27:52 AM Clinical Evaluation EBL: 5mL-10mL Procedural Details Procedure Consent Obtained. Pre-Procedure Time Out. Identified patient by full name and date of as verbalized by the patient/guarantor. Does the consent match the physician's order: Yes. Accurate & Complete Informed Consent: Yes. Inpatient/Outpatient History & Physical on Chart: Yes. If H&P is completed, is and addenduem needed: No; If yes, is the addendum complete: N/A. Visualize and Verify Site with Patient/Guarantor: N/A. Relevant Radiology Images available: N/A. The risks, benefits, and alternatives of sedation and/or procedure were discussed by physician. The patient agrees to continue. Admit Source: Out Patient. Procedure started. Physician notified. Physician arrived. Physician scrubbed in. Family updated by MD prior to the start of the procedure. [facility] Clinical Fraility Score: 3: Managing Well. Clinical Genetics Laboratory Chief Indications: Valvular Disease. Chest Pain Symptom Assessment: Typical Angina Symptoms. Cardiovascular Instability: No. Correct patient, site and procedure confirmed by cath team. Current diagnosis: LV Dysfunction. PERRLA. Strong, equal hand warehouse order puller bilaterally. Lungs clear x 5 lobes. IV Site on Arrival: 20 gauge in the right anticubital. IV Site on Arrival: 20 gauge in the left anticubital. IV Fluids: 0.9% NaCl at KVO. 0 mL infused prior to laboratory analyst. Pre Procedural Pulses: bilateral posterior tibial was Doppled. Pre Procedural Pulses: bilateral dorsalis pedis was Doppled. Pre Procedural Pulses: bilateral radial was 3+. Oxygen started at 0 liters/min via nasal canula for RHC. right groin was prepped with chloroprep then draped in the usual sterile fashion. right radial was prepped with chloroprep then draped in the usual sterile fashion. Baseline sample Acquired. HR: 52 BPM. Baseline sample Acquired. HR: 56 BPM. Immediate Pre-Procedure Time Out. Correct Patient: Yes; Correct Procedure: Yes; Correct Site: Yes; Correct Patient Position: Yes; Correct Supplies: Yes; Dried Flammable Prep: Yes; Blood Products Available: N/A;. Lidocaine 1% infiltrated to the right brachial. Wire in by throught the 20 ga IV access right brachial. [place]-Khadra MON catheter inserted. [place] Wire inserted. Catheter attempted to be advanced into position. Wire out. Hand injection of the Subclavian by . [place] Wire inserted. Catheter attempted to be advanced into position. Wire out. ABG drawn and sent with respiratory therapy. Pressure measurements obtained. Oximetry samples were obtained. Normal venous range: 60-85%. Normal arterial range: 95-100%. [place] out. Lidocaine 1% infiltrated to the right radial. Arterial access obtained. ABG drawn and sent with respiratory therapy. A 5 mauritian Francisco Javier catheter in over wire. Multiple views taken of left coronary artery. Catheter redirected to the RCA. Oxygen on at 2 lpm. Unable to cannulate the RCA. Catheter removed over the wire. A 5 mauritian JR4 catheter in over wire. Multiple views taken of right coronary artery. Catheter removed over the exchange wire. Physician review of films. Omnipaque 84 ml. Phsician scrubbed out. Post op diagnosis: Severe aortic stenosis; Mild CAD, Pulmonary HTN. A Manual Compression was successful obtaining hemostatsis at the Right Brachial Vein insertion site. A TR Band was successful obtaining hemostatsis at the Right Radial artery insertion site. TR band placed. Hemostasis obtained. Sheath(s) removed and manual pressure held until hemostasis was achieved. Sterile 4x4 and Op-site applied to the puncture site. No oozing or hematoma noted. Post sheath removal instructions were given and the patient verbalized understanding. Post Procedure: Pulses reassessed and unchanged. PERRLA. Strong, equal hand warehouse order puller bilaterally. No VTE prophylaxis required. Medication's Wasted: Lidocaine 1% = 18 ml , Nitro = 49.8 mg , Heparin = 1000 units , Fentanyl = 75 mcg. Total IV fluids: 50 mL. Fluoro: 8:06. Contrast type used: Omnipaque 300 mg/mL, 150 mL bottle. Complications: None. Estimated blood loss: 5mL-10mL. Responsiveness - Normal response to verbal stimuli; alert and oriented, PERRLA. Airway - Unaffected, no intervention required; spontaneous ventilation. Circulation: W/N/L, pulses unchanged. Nausea/Vomiting: No. Procedure completed. Patient transferred by bed to CPRU. Vital chart was stopped. Access Site Site: Right Brachial Vein Sheath Size: 6 Fr Hemostasis Method: Manual Compression Hemostasis Success: Successful Site: Right Radial artery Sheath Size: 6 Fr Hemostasis Method: TR Band Hemostasis Success: Successful Procedure Medications Start: 8:38 AM Stop: 8:38 AM Medication: Versed Amount: 1 mg Route: I.V. Start: 8:39 AM Stop: 8:39 AM Medication: Fentanyl Amount: 25 mcg Route: I.V. Start: 8:57 AM Stop: 8:57 AM Medication: Nitrogylcerin Amount: 200 mcg Route: I.A. Start: 8:58 AM Stop: 8:58 AM Medication: Verapamil Amount: 5 mg Route: I.A. Start: 9:00 AM Stop: 9:00 AM Medication: Versed Amount: 1 mg Route: I.V. Start: 9:06 AM Stop: 9:06 AM Medication: Heparin Amount: 5000 units Route: I.V. I, the attending physician, have reviewed and verified all procedure medications. Yes, all medications given per verbal order History/Risk Factors Hypertension: Yes Dyslipidemia: Yes Peripheral Arterial Disease (PAD): No Myocardial Infarction (SC): No Obesity: No Renal Disease: No Tobacco Use: Former Prior Interventions PCI: No CABG: No Valve Surgery: No Report Signatures Finalized by Dr Jt Araujo MD [facility] on 02/23/2025 11:24 PM
--- NOTE | 2025-02-23 07:59 | W.PM.OPSUD ---
Surgery/Procedure H&P Update DATE OF PROCEDURE: February 23, 2025 DATE H&P PERFORMED: 02/11/25 H&P UPDATE INFORMATION: I have reviewed H&P completed within last 30 days, I have examined patient prior to procedure and No changes to prior documentation PREOP DIAGNOSIS: Severe PRIMARY INDICATION FOR PROCEDURE: Severe aortic valve stenosis/diastolic heart failure PLANNED PROCEDURE: Operation Date: 02/23/25 08:30 Proposed Procedures p Cardiac Catheterization - RLHC w/w0 LV and Marisel(Bilateral) - Jt Araujo MD PATIENT REASSESSED PRIOR TO SEDATION, WITH NO CHANGE NOTED: Yes PHYSICAL EXAM: alert, oriented x 3, clear to auscultation bilaterally and regular rate & rhythm AIRWAY EVAL/ANESTHESIA PLAN: normal airway, ASA III, Monitored Anesthesia, Local Anesthesia, Risks, benefits & alternatives of sedation and/or procedure discussed and Patient agrees to continue as planned
[2025-02-23 09:05] LABS: Arterial Blood Gas Hematocrit 34.6 % (37-47); Blood Gas Operator Identificat GD; Blood Gas Sample Site Not specified; Blood Gas Sample Type Not specified; Carboxyhemoglobin 1.1 %THgb (0.4-20.1); Methemoglobin 0.9 % (0.4-1.5)
[2025-02-23 09:07] LABS: Arterial Blood Gas Hematocrit 34.0 % (37-47); Blood Gas Operator Identificat GD; Blood Gas Sample Site Not specified; Blood Gas Sample Type Venous; Carboxyhemoglobin 1.0 %THgb (0.4-20.1); Methemoglobin 0.8 % (0.4-1.5)
[2025-02-23 09:10] LABS: Arterial Blood Gas Hematocrit 32.2 % (37-47); Blood Gas Operator Identificat GD; Blood Gas Sample Site Not specified; Blood Gas Sample Type Venous; Carboxyhemoglobin 1.1 %THgb (0.4-20.1); Methemoglobin 0.9 % (0.4-1.5)
[2025-02-23 09:13] LABS: Alveolar-Arterial Oxygen Gradi 6.9 mmHg (5-10); Arterial Blood Gas Hematocrit 16.0 % (37-47); Blood Gas Operator Identificat GD; Blood Gas Sample Site Not specified; Blood Gas Sample Type Venous; Carboxyhemoglobin 1.3 %THgb (0.4-20.1); Methemoglobin 1.2 % (0.4-1.5)
== END 2025-02-23 13:05 | disposition home or self-care (01) ==
PROVIDERS: PCP Family Medicine; Visit Provider Internal Medicine Cardiovascular Disease
DX: I25.10 Atherosclerotic heart disease of native coronary artery without angina pectoris (principal); I10 Essential (primary) hypertension; E78.5 Hyperlipidemia, unspecified; Z87.891 Personal history of nicotine dependence; R00.2 Palpitations; I35.0 Nonrheumatic aortic (valve) stenosis
CPT/HCPCS: 36415; 82810; 93456; 99152; 99153; C1751; C1769; C1887; C1894; J1644; J2250; J3010; J3490; J7030; J7613; J7626; J9999; Q0163; Q9967

== ENCOUNTER → 2025-03-17 14:45 | Outpatient (BNVA) | payer MEDICARE, SELFPAY | PROVIDERS: PCP Family Medicine; Visit Provider Nurse Practitioner Family | DX: I25.10 Atherosclerotic heart disease of native coronary artery without angina pectoris (principal); I11.0 Hypertensive heart disease with heart failure; I50.30 Unspecified diastolic (congestive) heart failure; M79.601 Pain in right arm; E78.5 Hyperlipidemia, unspecified; I35.0 Nonrheumatic aortic (valve) stenosis; Z87.891 Personal history of nicotine dependence | CPT/HCPCS: 99214 ==

== ENCOUNTER 2025-03-22 12:44 | Oncology outpatient (recurring) (ONCR) | payer MEDICARE, SELFPAY ==
--- NOTE | 2025-03-22 13:00 | USR_ITS ---
PROCEDURE INFORMATION: Exam: US Duplex Right Upper Extremity Arteries Exam date and time: 03/22/2025 1:14 PM Age: 84 years old Clinical indication: Arm, upper; Right; PT has pain at wrist and feels lump; Additional info: Post cath right arm pain TECHNIQUE: Imaging protocol: Right Real-time ultrasound scan of the arteries of the right upper extremity with 2-D omer scale, color Doppler flow and spectral waveform analysis. COMPARISON: No relevant prior studies available. FINDINGS: Right subclavian artery: No occlusion or significant stenosis. Normal waveform. Right axillary artery: No occlusion or significant stenosis. Normal waveform. Right brachial artery: No occlusion or significant stenosis. Normal waveform. Right radial artery: No occlusion or significant stenosis. Normal waveform. Right ulnar artery: No occlusion or significant stenosis. Normal waveform. US/[place] [id number] IMPRESSION: No abnormal findings.
== END 2025-04-07 23:59 | disposition home or self-care (01) ==
LOC: ONCMED 12:47
PROVIDERS: PCP Family Medicine; Visit Provider Internal Medicine Medical Oncology
DX: D69.6 Thrombocytopenia, unspecified (principal); D70.9 Neutropenia, unspecified; R05.9 Cough, unspecified; R51.9 Headache, unspecified; Z79.899 Other long term (current) drug therapy; Z53.9 Procedure and treatment not carried out, unspecified reason; M79.601 Pain in right arm
CPT/HCPCS: 93931